=== PATIENT | female | born 1935 | race Caucasian/White ===

== ENCOUNTER → 2016-04-05 | Outpatient (REF) | payer MEDICARE ==
[2016-04-05 13:40] LABS: BASO # 0.1 K/mm3 (0.0-0.2); BASO % 0.9 % (0.0-1.0); EOS # 0.2 K/mm3 (0.0-0.50); EOS % 3.3 % (0.0-3.0); LARGE UNSTAINED CELL # 0.1 K/mm3 (0.0-0.4); LARGE UNSTAINED CELL % 1.9 % (0.0-4.0); LYMPH % 26.7 % (24.0-44.0); MEAN CORPUSCULAR HEMOGLOBIN 28.8 pg (27.0-33.0); MEAN CORPUSCULAR VOLUME 87.2 fl (80.0-96.0); MONO # 0.4 K/mm3 (0.0-0.8); MONO % 5.2 % (0.0-5.0); NEUTROPHILS # 4.5 K/mm3 (1.8-7.7); NEUTROPHILS % 62.1 % (36.0-66.0); PLATELET COUNT, AUTOMATED 215 k/mm3 (150-450); RED CELL DISTRIBUTION WIDTH 13.4 % (11.5-14.5); WHITE BLOOD COUNT 7.3 K/mm3 (4.0-10.0)
[2016-04-05 13:46] LABS: ANION GAP 9 MEQ/L (8-16); BLOOD UREA NITROGEN 20 MG/DL (7-18); CALCIUM LEVEL 9.6 MG/DL (8.8-10.2); CARBON DIOXIDE LEVEL 28 MEQ/L (21-32); CHLORIDE LEVEL 106 MEQ/L (98-107); CREATININE FOR GFR 0.88 MG/DL (0.55-1.02); GLOMERULAR FILTRATION RATE > 60.0 (>32); GLUCOSE, FASTING 102 MG/DL (83-110); POTASSIUM SERUM 4.4 MEQ/L (3.5-5.1); SODIUM LEVEL 143 MEQ/L (136-145)
== END ==
LOC: M SFHCPLAZ 11:29
PROVIDERS: ATTEND Nurse Practitioner Family
DX: J45.21 Mild intermittent asthma with (acute) exacerbation (principal)
CPT/HCPCS: 36415; 80048; 85025; G0463

== ENCOUNTER → 2016-04-06 | Outpatient (CLI) | payer MEDICARE ==
--- NOTE | 2016-04-06 11:51 | REP ---
TWO VIEW CHEST: Two views of the chest are performed. COMPARISON: 09/26/2013 There are mild bibasilar fibrotic changes. There is no acute infiltrate. The heart is normal in size. There is calcified tortuous aorta. The mediastinal silhouette is unchanged. There are degenerative changes of the spine. Metallic clips are again seen in the upper abdomen. IMPRESSION: Mild stable chronic findings without evidence of acute pulmonary disease. Signed by Padilla Powell MD 04/06/2016 02:34 P
== END | disposition home or self-care (01) ==
LOC: M SMT 09:21
PROVIDERS: ATTEND Nurse Practitioner Family
DX: J45.21 Mild intermittent asthma with (acute) exacerbation (principal); J98.4 Other disorders of lung

== ENCOUNTER → 2016-06-01 | Outpatient (REF) | payer MEDICARE ==
[2016-06-01 12:17] LABS: ALBUMIN 3.5 GM/DL (3.2-5.2); ALBUMIN/GLOBULIN RATIO 1.21 (1.00-1.93); ALKALINE PHOSPHATASE 80 U/L (45-117); ALT/SGPT 28 U/L (12-78); ANION GAP 3 MEQ/L (8-16); AST/SGOT 22 U/L (15-37); BILIRUBIN,TOTAL 0.4 MG/DL (0.2-1.0); BLOOD UREA NITROGEN 17 MG/DL (7-18); CALCIUM LEVEL 9.5 MG/DL (8.8-10.2); CARBON DIOXIDE LEVEL 31 MEQ/L (21-32); CHLORIDE LEVEL 109 MEQ/L (98-107); FREE T4 1.17 NG/DL (0.76-1.46); GLOMERULAR FILTRATION RATE > 60.0 (>32); GLUCOSE, FASTING 83 MG/DL (83-110); MAGNESIUM LEVEL 2.4 MG/DL (1.8-2.4); POTASSIUM SERUM 4.6 MEQ/L (3.5-5.1); SODIUM LEVEL 143 MEQ/L (136-145); TOTAL PROTEIN 6.4 GM/DL (6.4-8.2)
== END ==
LOC: M SFHCPLAZ 08:20
PROVIDERS: ATTEND Nurse Practitioner Family
DX: I10 Essential (primary) hypertension (principal); E03.9 Hypothyroidism, unspecified

== ENCOUNTER → 2017-01-17 | Outpatient (REF) | payer MEDICARE ==
[2017-01-17 12:18] LABS: ALBUMIN 3.6 GM/DL (3.2-5.2); ALBUMIN/GLOBULIN RATIO 1.38 (1.00-1.93); ALKALINE PHOSPHATASE 75 U/L (45-117); ALT/SGPT 30 U/L (12-78); ANION GAP 7 MEQ/L (8-16); AST/SGOT 21 U/L (7-37); BILIRUBIN,TOTAL 0.4 MG/DL (0.2-1.0); BLOOD UREA NITROGEN 18 MG/DL (7-18); CALCIUM LEVEL 9.3 MG/DL (8.8-10.2); CARBON DIOXIDE LEVEL 27 MEQ/L (21-32); CHLORIDE LEVEL 107 MEQ/L (98-107); CHOLESTEROL LEVEL 215 MG/DL (<200); FREE T4 0.97 NG/DL (0.76-1.46); GLOMERULAR FILTRATION RATE > 60.0 (>32); GLUCOSE, FASTING 90 MG/DL (83-110); POTASSIUM SERUM 4.4 MEQ/L (3.5-5.1); SODIUM LEVEL 141 MEQ/L (136-145); TOTAL PROTEIN 6.2 GM/DL (6.4-8.2); TRIGLYCERIDES LEVEL 246 MG/DL (<150)
== END ==
LOC: M SFHCPLAZ 08:34
PROVIDERS: ATTEND Nurse Practitioner Family
DX: I10 Essential (primary) hypertension (principal); E03.9 Hypothyroidism, unspecified; E78.2 Mixed hyperlipidemia

== ENCOUNTER → 2017-02-07 | Outpatient (CLI) | payer MEDICARE ==
--- NOTE | 2017-02-07 09:03 | REPMRS ---
Patient History The patient states she had a clinical breast exam in 05/2016. 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 No known family history of cancer. Benign excisional biopsy of the left breast, 1985. Digital Woman Screen Mammo: February 07, 2017 - Exam #: [id number] Bilateral CC and MLO view(s) were taken. Technologist: Liz Borrero, Technologist Prior study comparison: February 07, 2016, bilateral digital mammo screening bilat, performed at [facility]. February 04, 2015, bilateral digital mammo screening bilat, performed at [facility]. February 02, 2014, bilateral digital mammo screening bilat, performed at [facility]. January 28, 2013, digital woman screen mammo performed at [facility]. FINDINGS: There are scattered fibroglandular densities. There has been no change in the appearance of the mammogram from the prior studies. There is a mild amount of residual fibroglandular tissue which is fairly symmetric. There is no interval development of dominant mass, architectural distortion, or clustered microcalcification suggestive of malignancy. There are bilateral benign arterial calcifications noted. Large coarse benign appearing calcifications are present. There are scattered, small, benign calcifications of doubtful clinical significance. No significant changes when compared with prior studies. ASSESSMENT: BI-RADS/ACR category 2 mammogram. Benign finding(s). Recommendation Routine screening mammogram in 1 year (for women over age 40). This mammogram was interpreted with the aid of an FDA-approved computer-aided dectection system. A. Negative x-ray reports should not delay biopsy if a dominant or clinically suspicious mass is present. B. Four to eight percent of cancers are not identified by mammography. C. Adenosis and dense breast may obscure an underlying neoplasm. Electronically Signed By: Julian Jung MD 02/07/17 0902
--- NOTE | 2017-02-09 09:12 | DEXA ---
AP SPINE L1 - L4 1.397 1.6 3.5 LT FEMUR TOTAL 0.849 -1.3 0.8 RT FEMUR TOTAL 0.822 -1.5 0.6 TOTAL BODY TOTAL OTHER COMMENTS: Normal bone densitometry of the spine. There is low bone density of the left hip. There is low bone density of the right hip. There is degenerative change in the spine which may artificially elevate the BMD. The decreased density of the spine does not represent a significant change since 02/04/2015. The decreased density of the left hip does represent a significant change since 02/04/2015. The decreased density of the right hip does represent a significant change since 02/04/2015. The density of the spine has decreased 0.9% since the initial exam on 2001. The spine density has decreased 0.7% since the most recent exam on 02/04/2015. The density of the left hip has decreased 18.6% since the initial exam on 2001. The density of the left hip has decreased 7.0% since the most recent exam on 05/2014. The density of the right hip has decreased 23.7% since the initial exam on 05/27. The density of the right hip has decreased 7.2% since the most recent exam on . FOLLOW-UP: Recommendation for the next bone density exam: 2 years. HERNÁN
== END ==
LOC: M WHC 07:49
PROVIDERS: ATTEND Nurse Practitioner Family
DX: Z12.31 Encounter for screening mammogram for malignant neoplasm of breast (principal); M85.80 Other specified disorders of bone density and structure, unspecified site; Z78.0 Asymptomatic menopausal state
CPT/HCPCS: 77080; G0202

== ENCOUNTER → 2017-04-26 | Outpatient (REF) | payer MEDICARE ==
[2017-04-26 12:36] LABS: FREE T4 1.54 NG/DL (0.76-1.46); THYROID STIMULATING HORMONE 0.024 uIU/ML (0.358-3.740)
== END ==
LOC: M SFHCPLAZ 08:19
DX: E03.9 Hypothyroidism, unspecified (principal)
CPT/HCPCS: 84443

== ENCOUNTER → 2017-10-25 | Outpatient (REF) | payer MEDICARE ==
[2017-10-25 13:04] LABS: ALBUMIN 3.7 GM/DL (3.2-5.2); ALBUMIN/GLOBULIN RATIO 1.16 (1.00-1.93); ALKALINE PHOSPHATASE 79 U/L (45-117); ALT/SGPT 25 U/L (12-78); ANION GAP 7 MEQ/L (8-16); AST/SGOT 20 U/L (7-37); BILIRUBIN,TOTAL 0.4 MG/DL (0.2-1.0); BLOOD UREA NITROGEN 17 MG/DL (7-18); CALCIUM LEVEL 9.5 MG/DL (8.8-10.2); CARBON DIOXIDE LEVEL 28 MEQ/L (21-32); CHLORIDE LEVEL 107 MEQ/L (98-107); CREATININE FOR GFR 0.78 MG/DL (0.55-1.30); FREE T4 1.21 NG/DL (0.76-1.46); GLOMERULAR FILTRATION RATE > 60.0 (>32); GLUCOSE, FASTING 93 MG/DL (70-100); POTASSIUM SERUM 4.5 MEQ/L (3.5-5.1); SODIUM LEVEL 142 MEQ/L (136-145); THYROID STIMULATING HORMONE 0.234 uIU/ML (0.358-3.740); TOTAL PROTEIN 6.9 GM/DL (6.4-8.2)
== END ==
LOC: M SFHCPLAZ 08:09
DX: I10 Essential (primary) hypertension (principal); E03.9 Hypothyroidism, unspecified
CPT/HCPCS: 84443

== ENCOUNTER → 2017-11-06 | Outpatient (CLI) | payer MEDICARE | LOC: M RAD 08:16 | DX: I65.23 Occlusion and stenosis of bilateral carotid arteries (principal) | CPT/HCPCS: 93880 ==

== ENCOUNTER → 2017-12-25 | Outpatient (REF) | payer MEDICARE ==
[2017-12-25 11:19] LABS: BLOOD UREA NITROGEN 14 MG/DL (7-18)
[2017-12-25 11:19] LABS: GLOMERULAR FILTRATION RATE > 60.0 (>32)
== END ==
LOC: M LABDRAWP 11:00
DX: M25.561 Pain in right knee (principal)

== ENCOUNTER → 2017-12-25 | Outpatient (REF) | payer MEDICARE ==
[2017-12-25 11:24] LABS: ALBUMIN 3.5 GM/DL (3.2-5.2); ALBUMIN/GLOBULIN RATIO 1.13 (1.00-1.93); ALKALINE PHOSPHATASE 80 U/L (45-117); ALT/SGPT 21 U/L (12-78); ANION GAP 7 MEQ/L (8-16); AST/SGOT 19 U/L (7-37); BILIRUBIN,TOTAL 0.4 MG/DL (0.2-1.0); BLOOD UREA NITROGEN 14 MG/DL (7-18); CALCIUM LEVEL 9.1 MG/DL (8.8-10.2); CARBON DIOXIDE LEVEL 28 MEQ/L (21-32); CHLORIDE LEVEL 108 MEQ/L (98-107); CHOLESTEROL LEVEL 215 MG/DL (<200); CHOLESTEROL RISK RATIO 4.673 (<5); CREATININE FOR GFR 0.72 MG/DL (0.55-1.30); FREE T4 1.23 NG/DL (0.76-1.46); GLOMERULAR FILTRATION RATE > 60.0 (>32); GLUCOSE, FASTING 91 MG/DL (70-100); HDL CHOLESTEROL 46 MG/DL (>40); LDL CHOLESTEROL 105 MG/DL (<100); NON-HDL-C 169 MG/DL; POTASSIUM SERUM 4.6 MEQ/L (3.5-5.1); SODIUM LEVEL 143 MEQ/L (136-145); THYROID STIMULATING HORMONE 0.271 uIU/ML (0.358-3.740); TOTAL PROTEIN 6.6 GM/DL (6.4-8.2); TRIGLYCERIDES LEVEL 321 MG/DL (<150)
== END ==
LOC: M SFHCPLAZ 08:38
DX: E78.2 Mixed hyperlipidemia (principal); E03.9 Hypothyroidism, unspecified
CPT/HCPCS: 84443

== ENCOUNTER → 2017-12-26 | Outpatient (REF) | payer MEDICARE | LOC: M LAB REF 18:01 | DX: C44.622 Squamous cell carcinoma of skin of right upper limb, including shoulder (principal) | CPT/HCPCS: 88305 ==

== ENCOUNTER → 2018-02-08 | Outpatient (CLI) | payer MEDICARE | LOC: M WHC 07:52 | DX: Z12.31 Encounter for screening mammogram for malignant neoplasm of breast (principal); Z86.018 Personal history of other benign neoplasm | CPT/HCPCS: 77067 ==

== ENCOUNTER → 2018-03-22 | Outpatient (REF) | payer MEDICARE ==
[2018-03-22 10:37] LABS: BLOOD UREA NITROGEN 13 MG/DL (7-18); CARBON DIOXIDE LEVEL 29 MEQ/L (21-32); CHLORIDE LEVEL 108 MEQ/L (98-107); CREATININE FOR GFR 0.71 MG/DL (0.55-1.30); GLOMERULAR FILTRATION RATE > 60.0 (>32); GLUCOSE, FASTING 91 MG/DL (70-100); POTASSIUM SERUM 4.3 MEQ/L (3.5-5.1); SODIUM LEVEL 143 MEQ/L (136-145)
== END ==
LOC: M SFHCPLAZ 08:36
PROVIDERS: ATTEND Nurse Practitioner Family
DX: E03.9 Hypothyroidism, unspecified (principal); I10 Essential (primary) hypertension

== ENCOUNTER → 2018-08-26 | Outpatient (REF) | payer MEDICARE ==
[2018-08-26 13:24] LABS: ALBUMIN 3.7 GM/DL (3.2-5.2); ALT/SGPT 26 U/L (12-78); BASO # 0.1 10^3/uL (0.0-0.2); BASO % 0.9 % (0.0-1.0); BILIRUBIN,TOTAL 0.4 MG/DL (0.2-1.0); BLOOD UREA NITROGEN 13 MG/DL (7-18); CALCIUM LEVEL 9.9 MG/DL (8.8-10.2); CARBON DIOXIDE LEVEL 29 MEQ/L (21-32); CHLORIDE LEVEL 105 MEQ/L (98-107); CREATININE FOR GFR 0.85 MG/DL (0.55-1.30); EOS # 0.2 10^3/uL (0.0-0.50); EOS % 3.6 % (0.0-3.0); GLOMERULAR FILTRATION RATE > 60.0 (>32); GLUCOSE, FASTING 92 MG/DL (70-100); HEMATOCRIT 41.5 % (36.0-47.0); HEMOGLOBIN 13.6 g/dl (12.0-15.5); LYMPH % 29.3 % (24.0-44.0); MAGNESIUM LEVEL 2.4 MG/DL (1.8-2.4); MEAN CORPUSCULAR HEMOGLOBIN 29.4 pg (27.0-33.0); MEAN CORPUSCULAR HGB CONC 32.8 g/dl (32.0-36.5); MEAN CORPUSCULAR VOLUME 89.6 fl (80.0-96.0); MONO # 0.5 10^3/uL (0.0-0.8); MONO % 6.7 % (0.0-5.0); NEUTROPHILS # 3.9 10^3/uL (1.8-7.7); NEUTROPHILS % 58.8 % (36.0-66.0); PLATELET COUNT, AUTOMATED 228 10^3/uL (150-450); POTASSIUM SERUM 4.5 MEQ/L (3.5-5.1); RED BLOOD COUNT 4.63 10^6/uL (4.00-5.40); SODIUM LEVEL 141 MEQ/L (136-145); TOTAL PROTEIN 7.3 GM/DL (6.4-8.2); WHITE BLOOD COUNT 6.7 10^3/uL (4.0-10.0)
== END ==
LOC: M SFHCPLAZ 09:19
PROVIDERS: ATTEND Family Medicine
DX: R19.7 Diarrhea, unspecified (principal)

== ENCOUNTER → 2018-12-17 | Outpatient (REF) | payer MEDICARE ==
[2018-12-17 10:51] LABS: ALBUMIN 3.5 GM/DL (3.2-5.2); ALT/SGPT 30 U/L (12-78); BILIRUBIN,TOTAL 0.5 MG/DL (0.2-1.0); BLOOD UREA NITROGEN 13 MG/DL (7-18); CALCIUM LEVEL 9.1 MG/DL (8.8-10.2); CARBON DIOXIDE LEVEL 29 MEQ/L (21-32); CHLORIDE LEVEL 107 MEQ/L (98-107); CHOLESTEROL LEVEL 208 MG/DL (<200); CHOLESTEROL RISK RATIO 4.521 (<5); CREATININE FOR GFR 0.84 MG/DL (0.55-1.30); FREE T4 0.92 NG/DL (0.76-1.46); GLOMERULAR FILTRATION RATE > 60.0 (>32); GLUCOSE, FASTING 90 MG/DL (70-100); HDL CHOLESTEROL 46 MG/DL (>40); LDL CHOLESTEROL 94 MG/DL (<100); NON-HDL-C 162 MG/DL; POTASSIUM SERUM 4.5 MEQ/L (3.5-5.1); SODIUM LEVEL 141 MEQ/L (136-145); TOTAL PROTEIN 6.4 GM/DL (6.4-8.2); TRIGLYCERIDES LEVEL 339 MG/DL (<150)
== END ==
LOC: M SFHCPLAZ 07:50
PROVIDERS: ATTEND Nurse Practitioner Family
DX: I10 Essential (primary) hypertension (principal); E03.9 Hypothyroidism, unspecified; E78.2 Mixed hyperlipidemia

== ENCOUNTER → 2019-03-07 | Outpatient (CLI) | payer MEDICARE ==
--- NOTE | 2019-03-07 11:39 | REPMRS ---
Patient History The patient states she had a clinical breast exam in 07/2018. 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 No known family history of cancer. Benign excisional biopsy of the left breast, 1985. No Hormone Replacement Therapy Digital Woman Screen Mammo: March 07, 2019 - Exam #: [id number] Bilateral CC and MLO view(s) were taken. Technologist: Liz Borrero, Technologist Prior study comparison: February 08, 2018, bilateral digital woman screen mammo performed at [facility]. February 07, 2017, digital woman screen mammo performed at [facility]. February 07, 2016, bilateral digital mammo screening bilat, performed at [facility]. FINDINGS: There are scattered fibroglandular densities. There has been no change in the appearance of the mammogram from the prior studies. There is a mild amount of scattered fibroglandular density which is fairly symmetric. There is no interval development of dominant mass, architectural distortion, or grouped microcalcification suggestive of malignancy. 3-D tomosynthesis shows no additional findings. Assessment: BI-RADS/ACR category 1 mammogram. Negative Mammogram. Recommendation Routine screening mammogram of both breasts in 1 year (for women over age 40). This patient's Lifetime Breast Cancer Risk is estimated at 0.5 %. This mammogram was interpreted with the aid of an FDA-approved computer-aided dectection system. Electronically Signed By: Manny Rodriguez MD 03/07/19 [id number]
== END ==
LOC: M WHC 10:07
PROVIDERS: ATTEND Nurse Practitioner Family
DX: Z12.31 Encounter for screening mammogram for malignant neoplasm of breast (principal)

== ENCOUNTER → 2019-03-12 | Outpatient (CLI) | payer MEDICARE ==
[2019-03-12 11:30] LABS: ALBUMIN 3.5 GM/DL (3.2-5.2); ALT/SGPT 20 U/L (12-78); BILIRUBIN,TOTAL 0.5 MG/DL (0.2-1.0); BLOOD UREA NITROGEN 13 MG/DL (7-18); CALCIUM LEVEL 9.3 MG/DL (8.8-10.2); CARBON DIOXIDE LEVEL 28 MEQ/L (21-32); CHLORIDE LEVEL 105 MEQ/L (98-107); CHOLESTEROL LEVEL 203 MG/DL (<200); CHOLESTEROL RISK RATIO 4.511 (<5); CREATININE FOR GFR 0.85 MG/DL (0.55-1.30); FREE T4 1.19 NG/DL (0.76-1.46); GLOMERULAR FILTRATION RATE > 60.0 (>32); GLUCOSE, FASTING 88 MG/DL (70-100); HDL CHOLESTEROL 45 MG/DL (>40); LDL CHOLESTEROL 113 MG/DL (<100); NON-HDL-C 158 MG/DL; POTASSIUM SERUM 4.6 MEQ/L (3.5-5.1); SODIUM LEVEL 140 MEQ/L (136-145); TOTAL PROTEIN 6.6 GM/DL (6.4-8.2); TRIGLYCERIDES LEVEL 223 MG/DL (<150)
== END ==
LOC: M PLALAB 08:29
PROVIDERS: ATTEND Nurse Practitioner Family
DX: E03.9 Hypothyroidism, unspecified (principal)

== ENCOUNTER → 2019-04-23 | Outpatient (REF) | payer MEDICARE ==
[2019-04-23 11:14] LABS: BASO # 0.1 10^3/uL (0.0-0.2); BASO % 0.7 % (0.0-1.0); EOS # 0.2 10^3/uL (0.0-0.5); EOS % 2.3 % (0.0-3.0); HEMATOCRIT 39.7 % (36.0-47.0); HEMOGLOBIN 13.3 g/dl (12.0-15.5); LYMPH # 1.7 10^3/uL (1.5-5.0); LYMPH % 24.6 % (24.0-44.0); MEAN CORPUSCULAR HEMOGLOBIN 29.7 pg (27.0-33.0); MEAN CORPUSCULAR HGB CONC 33.5 g/dl (32.0-36.5); MEAN CORPUSCULAR VOLUME 88.6 fl (80.0-96.0); MONO # 0.5 10^3/uL (0.0-0.8); MONO % 7.1 % (0.0-5.0); NEUTROPHILS # 4.6 10^3/uL (1.5-8.5); NEUTROPHILS % 64.9 % (36.0-66.0); PLATELET COUNT, AUTOMATED 178 10^3/uL (150-450); RED BLOOD COUNT 4.48 10^6/uL (4.00-5.40)
[2019-04-23 11:38] LABS: ALBUMIN 3.9 GM/DL (3.2-5.2); ALT/SGPT 27 U/L (12-78); BILIRUBIN,TOTAL 0.6 MG/DL (0.2-1.0); BLOOD UREA NITROGEN 12 MG/DL (7-18); CALCIUM LEVEL 9.7 MG/DL (8.8-10.2); CARBON DIOXIDE LEVEL 29 MEQ/L (21-32); CHLORIDE LEVEL 106 MEQ/L (98-107); CREATININE FOR GFR 0.74 MG/DL (0.55-1.30); GLOMERULAR FILTRATION RATE > 60.0 (>32); GLUCOSE, FASTING 105 MG/DL (70-100); MAGNESIUM LEVEL 2.1 MG/DL (1.8-2.4); POTASSIUM SERUM 4.5 MEQ/L (3.5-5.1); SODIUM LEVEL 139 MEQ/L (136-145); TOTAL PROTEIN 6.8 GM/DL (6.4-8.2)
[2019-04-23 11:46] LABS: FOLATE > 24.0 NG/ML; VITAMIN B12 LEVEL 858 PG/ML
== END ==
LOC: M SFHCPLAZ 10:15
PROVIDERS: ATTEND Nurse Practitioner Family
DX: R53.83 Other fatigue (principal); R29.898 Other symptoms and signs involving the musculoskeletal system

== ENCOUNTER → 2019-07-17 | Outpatient (REF) | payer MEDICARE ==
[2019-07-17 11:09] LABS: BASO # 0.1 10^3/uL (0.0-0.2); BASO % 0.6 % (0.0-1.0); EOS # 0.2 10^3/uL (0.0-0.5); EOS % 2.4 % (0.0-3.0); HEMATOCRIT 41.6 % (36.0-47.0); LYMPH % 25.1 % (24.0-44.0); MEAN CORPUSCULAR HEMOGLOBIN 30.1 pg (27.0-33.0); MEAN CORPUSCULAR HGB CONC 33.7 g/dl (32.0-36.5); MEAN CORPUSCULAR VOLUME 89.5 fl (80.0-96.0); MONO # 0.6 10^3/uL (0.0-0.8); MONO % 7.7 % (0.0-5.0); NEUTROPHILS # 5.1 10^3/uL (1.5-8.5); NEUTROPHILS % 63.8 % (36.0-66.0); PLATELET COUNT, AUTOMATED 192 10^3/uL (150-450); RED BLOOD COUNT 4.65 10^6/uL (4.00-5.40); WHITE BLOOD COUNT 8.1 10^3/uL (4.0-10.0)
[2019-07-17 11:29] LABS: BLOOD UREA NITROGEN 11 MG/DL (7-18); CARBON DIOXIDE LEVEL 28 MEQ/L (21-32); CHLORIDE LEVEL 107 MEQ/L (98-107); CREATININE FOR GFR 0.73 MG/DL (0.55-1.30); GLOMERULAR FILTRATION RATE > 60.0 (>32); GLUCOSE, FASTING 131 MG/DL (70-100); POTASSIUM SERUM 4.2 MEQ/L (3.5-5.1); SODIUM LEVEL 141 MEQ/L (136-145)
== END ==
LOC: M SFHCPLAZ 10:11
PROVIDERS: ATTEND Nurse Practitioner Family
DX: J06.9 Acute upper respiratory infection, unspecified (principal); R05 Cough; Z11.59 Encounter for screening for other viral diseases
CPT/HCPCS: 36415; 80048; 85025; U0003

== ENCOUNTER → 2019-07-17 | Outpatient (CLI) | payer MEDICARE ==
--- NOTE | 2019-07-17 12:03 | REPPI ---
CHEST X-RAY: Two views. HISTORY: Cough. COMPARISON CHEST X-RAY: April 23, 2019. FINDINGS: The lungs are symmetrically aerated. No focal infiltrate is seen. Mildly prominent interstitial markings are seen peripherally unchanged from prior study consistent with COPD. The aorta is calcific and somewhat tortuous. The heart is not felt to be enlarged. Pleural angles are sharp. There are clips in the right upper quadrant of the abdomen. IMPRESSION: Prominent interstitial markings consistent with COPD unchanged. No focal infiltrate. Electronically Signed by Josh Rodriguez MD 07/17/2019 01:15 P
== END ==
LOC: M PLAIMG 10:12
PROVIDERS: ATTEND Nurse Practitioner Family
DX: R05 Cough (principal)

== ENCOUNTER → 2019-10-30 | Outpatient (CLI) | payer MEDICARE ==
[2019-10-30 13:48] LABS: ALBUMIN 3.7 GM/DL (3.2-5.2); ALT/SGPT 21 U/L (12-78); BILIRUBIN,TOTAL 0.6 MG/DL (0.2-1.0); BLOOD UREA NITROGEN 9 MG/DL (7-18); CALCIUM LEVEL 9.4 MG/DL (8.8-10.2); CARBON DIOXIDE LEVEL 29 MEQ/L (21-32); CHLORIDE LEVEL 107 MEQ/L (98-107); CHOLESTEROL LEVEL 203 MG/DL (<200); CHOLESTEROL RISK RATIO 4.229 (<5); FREE T4 1.38 NG/DL (0.76-1.46); GLOMERULAR FILTRATION RATE > 60.0 (>32); GLUCOSE, FASTING 99 MG/DL (70-100); HDL CHOLESTEROL 48 MG/DL (>40); LDL CHOLESTEROL 108 MG/DL (<100); NON-HDL-C 155 MG/DL; SODIUM LEVEL 142 MEQ/L (136-145); THYROID STIMULATING HORMONE 0.636 uIU/ML (0.358-3.740); TOTAL 25(OH) VITAMIN D 60.5 NG/ML (30.0-100.0); TOTAL PROTEIN 6.7 GM/DL (6.4-8.2); TRIGLYCERIDES LEVEL 237 MG/DL (<150)
== END ==
LOC: M PLALAB 08:34
PROVIDERS: ATTEND Nurse Practitioner Family
DX: I10 Essential (primary) hypertension (principal); E78.2 Mixed hyperlipidemia; E03.9 Hypothyroidism, unspecified; G89.29 Other chronic pain

== ENCOUNTER → 2020-03-17 | Outpatient (CLI) | payer MEDICARE ==
--- NOTE | 2020-03-17 09:25 | REPMRS ---
Patient History The patient states she has not had a clinical breast exam in over a year. No known family history of cancer. Benign excisional biopsy of the left breast, 1985. No Hormone Replacement Therapy 3D TOMOSYNTHESIS WAS PERFORMED. [facility] lifetime risk for breast cancer is 0.3%. Volpara breast density b. Digital Woman Screen Mammo: March 17, 2020 - Exam #: [id number] Bilateral CC and MLO view(s) were taken. Technologist: Sherry Bermudez, Technologist Prior study comparison: March 07, 2019, bilateral digital woman screen mammo performed at [facility]. February 08, 2018, bilateral digital woman screen mammo performed at [facility]. FINDINGS: There are scattered fibroglandular densities. There has been no change in the appearance of the mammogram from the prior studies. There is a mild amount of residual fibroglandular tissue which is fairly symmetric. There is no interval development of dominant mass, architectural distortion, or clustered microcalcification suggestive of malignancy. Assessment: BI-RADS/ACR category 1 mammogram. Negative Mammogram. Recommendation Routine screening mammogram in 1 year (for women over age 40). This mammogram was interpreted with the aid of an FDA-approved computer-aided dectection system. Electronically Signed By: Padilla Powell MD 03/17/20 0925
== END ==
LOC: M WHC 08:55
PROVIDERS: ATTEND Nurse Practitioner Family
DX: Z12.31 Encounter for screening mammogram for malignant neoplasm of breast (principal)

== ENCOUNTER → 2020-06-30 | Outpatient (REF) | payer MEDICARE ==
[2020-06-30 11:31] LABS: ALBUMIN 3.6 GM/DL (3.2-5.2); ALT/SGPT 18 U/L (12-78); BILIRUBIN,TOTAL 0.4 MG/DL (0.2-1.0); BLOOD UREA NITROGEN 16 MG/DL (7-18); CALCIUM LEVEL 9.6 MG/DL (8.8-10.2); CARBON DIOXIDE LEVEL 28 MEQ/L (21-32); CHLORIDE LEVEL 107 MEQ/L (98-107); CHOLESTEROL LEVEL 206 MG/DL (<200); CHOLESTEROL RISK RATIO 3.961 (<5); CREATININE FOR GFR 0.76 MG/DL (0.55-1.30); GLOMERULAR FILTRATION RATE > 60.0 (>32); GLUCOSE, FASTING 94 MG/DL (70-100); HDL CHOLESTEROL 52 MG/DL (>40); LDL CHOLESTEROL 111 MG/DL (<100); NON-HDL-C 154 MG/DL; POTASSIUM SERUM 4.3 MEQ/L (3.5-5.1); SODIUM LEVEL 141 MEQ/L (136-145); TOTAL 25(OH) VITAMIN D 53.2 NG/ML (30.0-100.0); TOTAL PROTEIN 6.7 GM/DL (6.4-8.2); TRIGLYCERIDES LEVEL 215 MG/DL (<150)
== END ==
LOC: M PLALAB 08:13
PROVIDERS: ATTEND Nurse Practitioner Family
DX: I10 Essential (primary) hypertension (principal); E03.9 Hypothyroidism, unspecified; E78.2 Mixed hyperlipidemia; M54.5 Low back pain

== ENCOUNTER 2020-09-14 15:33 | Inpatient (IN) | payer MEDICARE ==
[~2020-09-14] VITALS: Ht 160 cm; Wt 65.1 kg
[2020-09-14] MEDS ORDERED: PANT40TA29 PO (16:33)
[2020-09-14] MEDS ORDERED: LEVO125T4 PO (16:33)
[2020-09-14] MEDS ORDERED: QVAR80AE8 INH (16:33)
[2020-09-14] MEDS ORDERED: ALLE180T33 PO (16:33)
[2020-09-14] MEDS ORDERED: IRBE300T7 PO (16:33)
[2020-09-14] MEDS ORDERED: EQ S0.65 NARES (16:33)
[2020-09-14] MEDS ORDERED: NS 1,000 ML IV SCH (16:35)
--- NOTE | 2020-09-14 16:50 | REP ---
INDICATION: trauma. COMPARISON: Comparison chest x-ray April 06, 2016.. TECHNIQUE: Sitting AP radiograph. Single-view. FINDINGS: The lungs are symmetrically aerated and free of focal infiltrate. Interstitial markings are slightly prominent consistent with some mild interstitial fibrosis. The pleural angles are sharp. Heart is not enlarged. The aorta is calcific and slightly tortuous. Pulmonary vasculature is not increased. No acute bony abnormality is seen. IMPRESSION: No active disease. <Electronically signed by Manny Rodriguez > 09/14/20 [id number]
[2020-09-14] MEDS ORDERED: PROAAER10 INH (17:14)
[2020-09-14] MEDS ORDERED: POTA99TA14 PO (17:14)
--- NOTE | 2020-09-14 17:26 | ECGEPIP ---
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
--- NOTE | 2020-09-14 17:36 | HPEPDOC ---
[facility] Medical History & Physical Date of Admission Sep 14, 2020 Date of Service: Sep 14, 2020 Primary Care Physician: HESHAM COLEMAN NP Attending Physician: OLINDA PEÑA DO History and Physical CHIEF COMPLAINT: Right hip pain HISTORY OF PRESENT ILLNESS: Patient is an 85-year-old female who presents to the emergency department after having an x-ray performed outpatient by her primary care provider with right hip pain. Patient states 8 days ago she had a mechanical fall. Patient was turning while walking and caught the sole of her shoe on the ground causing her to fall. Patient states that she has been having some hip pain since then. She saw her primary care provider but did not want to get x-rays done as she was still able to walk on it and it was not bothering her that much. Today she says that she called her primary care provider because she was not feeling right. Hip x-ray was ordered which did show a right impacted femoral neck fracture. Dr. Schneider orthopedic surgery was called and will be consulted. Patient states that she has been feeling otherwise well. Patient denies any chest pain or difficulty breathing while walking on flat ground for more than 4 city blocks (5 to 10 minutes of walking) or up a flight of stairs. 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 Patient is otherwise healthy and active. Patient does have a history of asthma and is on controlling medication. Patient will have to use her albuterol maybe once a month with no nighttime awakenings. Patient is otherwise feeling well PAST MEDICAL HISTORY: 1. Hypothyroidism. 2. Hypertension. 3. Allergic rhinitis. 4. Vitamin D deficiency 5. Asthma 6. Hyperlipidemia 7. Psoriasis 8. Osteopenia found on DEXA scan 2014 9. Aortic valve sclerosis with marginal stenosis, last echocardiogram performed 1 month ago in the patient's cardiology office according the patient with r ecommendation to repeat in 1 year 10. GERD PAST SURGICAL HISTORY: 1. Bilateral cataract surgery. 2. Hysterectomy with bilateral salpingo-oophorectomy. 3. Breast biopsy. 4. Cholecystectomy 5. Eyelid surgery x2 6. Colonoscopy in 2006 7. Multiple excisional biopsies of skin cancer SOCIAL HISTORY: Patient currently lives with her and daughter. 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 Patient smokes cigarettes in the distant past and says she has not smoked in greater than 40 years. Patient rarely drinks alcohol and denies any illicit drug use FAMILY HISTORY: Patient's father at the age of 55 of black lung and ASCVD. Mother at 78 due to CHF. Patient has a history of multiple CVA in her siblings. ALLERGIES: Please see below. REVIEW OF SYSTEMS: General: Patient denies fevers HEENT: Patient denies headaches Cardiovascular: Patient denies chest pain Respiratory: Patient denies shortness of breath, cough GI: Patient denies abdominal pain, nausea, vomiting, diarrhea : Patient denies increased frequency or pain with urination Extremities: Patient reports pain in her right hip. Patient reports her feet will occasionally swell up but they are not swollen at this time Neurological: Patient denies numbness or tingling in legs Skin: Patient denies any new rashes or lesions. Hematologic: Patient denies any easy bruising. Lymphatic: Patient denies any lumps lumps or bumps in neck, axilla, or groin HOME MEDICATIONS: Please see below. PHYSICAL EXAMINATION: VITAL SIGNS: Temperature 99.3, pulse 88, respiratory rate 16, blood pressure 180/88, pulse oximetry 97% on room air. General: Alert and oriented female patient who was laying in the bed in the emergency room I walked in. Patient did not appear to be in any acute distress. HEENT: Normocephalic, atraumatic, moist mucous membranes. Neck: No lymphadenopathy or thyromegaly Cardiac: Regular rate and rhythm, no murmurs, normal S1, normal S2 Pulm: Clear to auscultation bilaterally. No wheezes, rhonchi, rales Abd: Nondistended, nontender to palpation, normal bowel sounds Ext: No edema bilateral lower extremities Neuro: Patient is able to move her upper and lower extremities without any difficulty. Skin: Skin of the head, neck, upper and lower extremities, abdomen and lower back was examined not show any evidence of rash or suspicious lesions. LABORATORY DATA: See below. IMAGING: Hip and pelvis injury performed on 09/14/2020 was reported to show right hip fracture Chest x-ray performed on 09/14/2020 was reported to show no acute disease. MICROBIOLOGY: Please see below. ASSESSMENT: Patient is a an 85-year-old female who presented to the emergency department after falling 8 days ago who was found to have a right impacted femoral neck fracture on x-ray performed earlier in the day.. . PLAN: 1. Right femoral neck fracture. Dr. Schneider is on consult and will take the patient either to the OR tonight or tomorrow depending on the OR schedule. Patient will currently be held n.p.o. if the patient is going to go to the operating room today. Patient will work with physical therapy after the procedure and will be discharged based on Dr. Tobar's recommendations. 2. Preoperative evaluation. Patient presents for preoperative evaluation for right hip fracture repair on 09/14/2020 or 09/15/2020. Review of their medical history, medications were performed. At this time patient does not require any further medical evaluation prior to surgery. Patient does not require any further laboratory evaluation prior to surgery. Surgical risk was reviewed with patient. Patient is at 3.9% risk for surgery according to the RCRI risk calculator. Surgical risk was explained to patient, they understand risks of surgery and wish to proceed with surgery. Patient did take her irbesartan this morning the patient continues to be monitored closely for intraoperative hypotension due to being on an ERIKA inhibitor. If the patient is surgery tomorrow, ERIKA inhibitor should be held during the day. Patient also has a h istory of mild persistent asthma on controller medication and rarely has to use her rescue inhaler. Patient will need to be closely monitored due to her asthma. Patient is medically optimized for surgery. 3. Hypertension. Patient took her irbesartan today as above. We can use other blood pressure medication to lower her blood pressure if necessary. 4. Asthma. We will continue the patient's home medications. 5. Hypothyroidism. Continue home medications. 6. Hyperlipidemia. Continue home medications. 7. DVT prophylaxis: Teds and sequentials as the patient will be having surgery. 8. CODE STATUS: Full code. Patient stated that she would like measures that would save her life but would not like any measures done if they were deemed futile. Patient will be full code for surgery and CODE STATUS can be discussed in further detail after surgery. Disposition: Patient will be admitted to the medical surgical floor. Plan is to take the patient to the operating room for surgery either this evening or tomorrow depending on the operating room schedule and staff. Dr. Schneider has been consulted and has seen the patient. Vital Signs Vital Signs Date Time Temp Pulse Resp B/P (MAP) Pulse Ox O2 Delivery O2 Flow Rate FiO2 09/14/20 16:34 09/14/20 15:33 99.3 88 16 97 Room Air Laboratory Data Labs 24H Laboratory Tests 2 09/14/20 16:55: CBC/BMP Home Medications Scheduled Beclomethasone Dipropionate (Qvar Redihaler) 80 Mcg/Act Hfa.aeroba, 1 PUFF INH BID Fexofenadine HCl (Michelle Allergy) 180 Mg Tablet, 180 MG PO DAILY Irbesartan (Irbesartan) 300 Mg Tablet, 300 MG PO DAILY Levothyroxine Sodium (Levothyroxine Sodium) 125 Mcg Tablet, 125 MCG PO DAILY Pantoprazole Sodium (Pantoprazole Sodium) 40 Mg Tablet.dr, 40 MG PO DAILY Potassium Gluconate (Potassium) 99 Mg Tablet, 99 MG PO TID Sodium Chloride (Nasal Mccarley) 44 Ml Mccarley, 1 SPRAY NARES BID Scheduled PRN Albuterol Sulfate (Proair Hfa) 8.5 Gm Hfa.aer.ad, 2 PUFF INH Q6H PRN for SOB/WHEEZING Allergies Coded Allergies: codeine (Verified Adverse Reaction, Unknown, Nausea, 09/14/20) A-FIB/CHADSVASC A-FIB History Current/History of A-Fib/PAF?: No OLINDA PEÑA DO Sep 14, 2020 17:36
[2020-09-14 17:38] LABS: RSV AMPLIFICATION NEGATIVE (NEGATIVE)
[2020-09-14 17:51] LABS: BLOOD UREA NITROGEN 15 MG/DL (7-18); CALCIUM LEVEL 9.4 MG/DL (8.8-10.2); CARBON DIOXIDE LEVEL 27 MEQ/L (21-32); CHLORIDE LEVEL 105 MEQ/L (98-107); CK-MB VALUE MASS 1.9 NG/ML (<3.6); CPK CREATINE PHOSPHOKINASE 83 U/L (26-192); CREATININE FOR GFR 0.66 MG/DL (0.55-1.30); GLOMERULAR FILTRATION RATE > 60.0 (>32); GLUCOSE, FASTING 125 MG/DL (70-100); MB/CK RELATIVE INDEX 2.29 (< OR =4); POTASSIUM SERUM 4.2 MEQ/L (3.5-5.1); SODIUM LEVEL 137 MEQ/L (136-145); TROPONIN I < 0.02 NG/ML (< 0.10)
[2020-09-14 18:41] LABS: BASO # 0.1 10^3/uL (0.0-0.2); BASO % 0.8 % (0.0-1.0); EOS # 0.5 10^3/uL (0.0-0.5); HEMATOCRIT 38.3 % (36.0-47.0); HEMOGLOBIN 12.6 g/dl (12.0-15.5); LYMPH # 1.6 10^3/uL (1.5-5.0); LYMPH % 18.7 % (24.0-44.0); MEAN CORPUSCULAR HEMOGLOBIN 28.3 pg (27.0-33.0); MEAN CORPUSCULAR HGB CONC 32.9 g/dl (32.0-36.5); MEAN CORPUSCULAR VOLUME 85.9 fl (80.0-96.0); MONO # 0.6 10^3/uL (0.0-0.8); MONO % 6.9 % (2.0-8.0); NEUTROPHILS # 5.8 10^3/uL (1.5-8.5); NEUTROPHILS % 67.1 % (36.0-66.0); PLATELET COUNT, AUTOMATED 208 10^3/uL (150-450); RED BLOOD COUNT 4.46 10^6/uL (4.00-5.40); WHITE BLOOD COUNT 8.6 10^3/uL (4.0-10.0)
[2020-09-14] MEDS: NS 1,000 ML IV SCH (20:28)
[2020-09-15] VITALS (7 sets, daily range): BP systolic 146–167; BP diastolic 70–83; O2SAT 95
[2020-09-15 07:27] LABS: HEMATOCRIT 36.5 % (36.0-47.0); HEMOGLOBIN 12.1 g/dl (12.0-15.5); MEAN CORPUSCULAR HEMOGLOBIN 28.5 pg (27.0-33.0); MEAN CORPUSCULAR HGB CONC 33.2 g/dl (32.0-36.5); MEAN CORPUSCULAR VOLUME 86.1 fl (80.0-96.0); PLATELET COUNT, AUTOMATED 199 10^3/uL (150-450); RED BLOOD COUNT 4.24 10^6/uL (4.00-5.40); WHITE BLOOD COUNT 7.8 10^3/uL (4.0-10.0)
[2020-09-15 07:51] LABS: BLOOD UREA NITROGEN 9 MG/DL (7-18); CALCIUM LEVEL 8.9 MG/DL (8.8-10.2); CARBON DIOXIDE LEVEL 26 MEQ/L (21-32); CHLORIDE LEVEL 108 MEQ/L (98-107); CREATININE FOR GFR 0.56 MG/DL (0.55-1.30); GLOMERULAR FILTRATION RATE > 60.0 (>32); GLUCOSE, FASTING 98 MG/DL (70-100); POTASSIUM SERUM 3.9 MEQ/L (3.5-5.1); SODIUM LEVEL 139 MEQ/L (136-145)
[2020-09-15] MEDS: NS 1,000 ML IV SCH ×2 (07:57→12:29)
--- NOTE | 2020-09-15 08:59 | CR ---
CONSULTATION DATE: 09/14/2020 CHIEF COMPLAINT: Right hip fracture. HISTORY OF PRESENT ILLNESS: This is an 85-year-old female seen today at the request of the Emergency Department physician, Dr. Ignacio. The patient states eight days ago she had a ground-level mechanical fall. She fell directly on her right side, continues to have some groin pain. She was trying to put some weight on it but it was difficult for her. She saw her primary care physician, x-rays showed a valgus impacted femoral neck fracture. Otherwise, the patient denies chest pain, shortness of breath or loss of consciousness. PAST MEDICAL HISTORY: Per the Hospitalist note includes hypothyroidism, hypertension, allergic rhinitis, vitamin D deficiency, asthma, hyperlipidemia, psoriasis, osteopenia on DEXA scan in 2014, aortic valve sclerosis, marginal stenosis, GERD. MEDICATIONS: 1. Beclomethasone. 3. Irbesartan. 4. Levothyroxine. 5. Pantoprazole. 6. Potassium. 7. Sodium Chloride nasal spray. ALLERGIES: Codeine. PAST SURGICAL HISTORY: Cataract surgery, hysterectomy, bilateral salpingo-oophorectomy, breast biopsy, cholecystectomy, eyelid surgery x2, colonoscopy in 2006, multiple excisional biopsies of skin cancer. SOCIAL HISTORY: Patient lives with her and daughter. She is here with her right now, Bart. She uses a walker. Currently, no smoking, quit 40 years ago. She does not use drugs or alcohol. PHYSICAL EXAMINATION: This is a well-appearing 85-year-old female. She has a normal body mass index. She overall communicates well and appropriately. She is pleasant. Alert and oriented x3. Vital signs are stable. Examination of bilateral lower extremities: No obvious overlying evidence of muscle deformity or atrophy. Some mild pain at the proximal hip and groin. No pain of the knee, foot or ankle. She is able to wiggle her toes, dorsiflex, plantar flex the foot, the foot is warm and well-perfused. Strong dorsalis pedis pulse. Normal sensation to the superficial and deep peroneal nerves as well as saphenous, sural and tibial. IMAGING: Imaging was reviewed that shows a right valgus impacted femoral neck fracture, appears well-aligned on the lateral x-ray. LABORATORY DATA: Laboratory examination is pending, troponin is under 0.02. She is COVID negative. ASSESSMENT AND PLAN: This is an 85-year-old who has a valgus impacted femoral neck fracture. I explained her options. I explained the options of nonoperative management with protected weightbearing although this does carry an increased risk of displacement and need for subsequent hip arthroplasty surgery. I explained open reduction internal fixation with screws, DHS, Synthes femoral neck system or other means of internal fixation as well as hemiarthroplasty. I explained the pros and cons and risks and benefits of each of these options with her. The risk of open reduction internal fixation would be avascular necrosis, subsequent need for further surgery and conversion to a hemiarthroplasty or a total hip arthroplasty as well as hardware irritation, hardware breakage and other risks associated with surgery. Risks associated with hemiarthroplasty were also discussed. Typically, given the valgus impacted nature of the fracture this would be preferred treatment of open reduction internal fixation. I discussed the pros, cons, risks and benefits of this with her which include but are not limited to infection, pain, stiffness, weakness, damage to surrounding structures, limp, hardware irritation, hardware failure, subsequent need for conversion, avascular necrosis, osteoarthritis, delayed mal or nonunion, anesthetic complications, blood clots, and other risks. She wished to go ahead with surgery and I marked the right lower extremity and she signed the consent form for surgery of right hip open reduction internal fixation. In addition, we discussed the pros and cons, risks and benefits of possible need for blood transfusion. I discussed the risks including but not limited to infection, fevers, transfusion related reactions and other risks. She wished to go ahead with that. She signed the consent form. For now, the patient will be remaining NPO and I added the case onto the OR and left the surgical reps as well as the OR know about the case and we will perform the case either tonight or within the first 48 hours after admission. I explained this to the patient as well. For now, she is admitted under the Hospitalist service and will be made nothing by mouth. HERNÁN
[2020-09-15] MEDS ORDERED: MORPHINE 2 MG/ML 1ML VIAL (J2270) IV PRN ×3 (09:45→18:15)
[2020-09-15] MEDS ORDERED: traMADol 50 MG TAB PO ONE (12:30)
[2020-09-15] MEDS ORDERED: ceFAZolin 1GM VIAL (J0690 PER 500MG) As Ordered ONE (15:40)
[2020-09-15] MEDS ORDERED: LIDOCAINE 2% 100MG/5ML SDV (FOR ANES.) As Ordered ONE (15:42)
[2020-09-15] MEDS ORDERED: MIDAZOLAM INJ 2MG/2ML VIAL (J2250 PER 1MG) As Ordered ONE (15:42)
[2020-09-15] MEDS ORDERED: propofoL 200 MG/20 ML VIAL As Ordered ONE (15:42)
[2020-09-15] MEDS ORDERED: ROCURONIUM BROMIDE 50 MG/5 ML VIAL As Ordered ONE (15:42)
[2020-09-15] MEDS ORDERED: dexameTHASONE 4 MG/ML 1ML VIAL (J1100 PER 1MG) As Ordered ONE (15:42)
[2020-09-15] MEDS ORDERED: ACETAMINOPHEN 1000MG 100ML IV BTL (OFIRMEV) (J0131 PER 10MG) As Ordered ONE (15:42)
[2020-09-15] MEDS ORDERED: ONDANSETRON 4MG/2ML VIAL As Ordered ONE (15:42)
[2020-09-15] MEDS ORDERED: fentaNYL 100 MCG/2 ML INJECTION (J3010) As Ordered ONE (15:43)
[2020-09-15] MEDS ORDERED: PHENYLEPHRINE 10MG/ML 1ML VIAL (J2370 PER 1) As Ordered ONE (15:44)
[2020-09-15] MEDS ORDERED: KETAMINE HCL 200 MG/20 ML VIAL As Ordered ONE (15:56)
[2020-09-15] MEDS ORDERED: ceFAZolin 2 GM/D5W 50 ML IV BAG (J0690 PER 500MG) As Ordered ONE (16:02)
--- NOTE | 2020-09-15 17:42 | REP ---
INDICATION: RIGHT HIP FRACTURE. COMPARISON: PLAIN FILM EXAMINATION OBTAINED EARLIER TODAY TECHNIQUE: Three spot views of the right hip were obtained during hip pinning procedure. FINDINGS: The fixation devices do not breach the joint space. Fracture alignment appears unchanged. 133.8 seconds of fluoroscopy time was utilized to obtain the exam. IMPRESSION: As above <Electronically signed by Jhonny Lomax > 09/15/20 [id number]
--- NOTE | 2020-09-15 17:53 | IPNPDOC ---
Text Note Date of Service The patient was seen on 09/15/20. NOTE Subjective: Patient continues to complain of right hip fracture. Patient stated that pain poorly controlled with IV pain management Objective: GENERAL APPEARANCE: NAD HEENT: no scleral icterus, no JVD, EOMI CARDIOVASCULAR: S1S2 LUNGS: CTA ABDOMEN: soft & not tender w palpitation MUSCULOSKELETAL: no cyanosis, no swelling INTEGUMENT: no generalized pallor NEUROLOGICAL: cranial nerve function from 2-12 intact intact, follows commands, speech not dysarthric Assessment and plan Patient is 85 years old female with past medical history of hypothyroidism, hypertension, hyperlipidemia, osteopenia presented to hospital with right hip fracture Right hip fracture Orthopedics team will proceed with surgery today Continue pain management, added tramadol Hypertension Blood pressure under control Continue home meds Asthma Not in acute exacerbation Continue inhalers Hyperlipidemia Continue home meds DVT prophylaxis Heparin 5000 twice daily VS,Fishbone, I+O VS, Fishbone, I+O Laboratory Tests 09/15/20 06:09 Vital Signs Date Time Temp Pulse Resp B/P (MAP) Pulse Ox O2 Delivery O2 Flow Rate FiO2 09/15/20 14:00 98.5 70 18 159/83 (108) 96 09/15/20 06:00 Room Air I&O- Last 24 Hours up to 6 AM 09/15/20 06:00 Intake Total 885 ml Output Total 1300 ml Balance -415 ml JOSE LUIS SRIVASTAVA DO Sep 15, 2020 17:53
[2020-09-15] MEDS ORDERED: ALBUTEROL 90 MCG/ACT 8GM HFA INHALER INH PRN (18:00)
[2020-09-15] MEDS ORDERED: fentaNYL 100 MCG/2 ML INJECTION (J3010) IV PRN (18:05)
[2020-09-15] MEDS ORDERED: LR 1,000 ML IV SCH ×2 (18:05→18:10)
[2020-09-15] MEDS ORDERED: PERCOCET 5MG/325MG TAB PO PRN (18:05)
[2020-09-15] MEDS ORDERED: ONDANSETRON 4MG/2ML VIAL IV PRN ×2 (18:05→18:25)
[2020-09-15] MEDS ORDERED: METOCLOPRAMIDE INJ 10MG/2ML VIAL (J2765 PER 1) IV PRN (18:05)
[2020-09-15] MEDS ORDERED: ACETAMINOPHEN TAB 650MG DOSE (2X325MG) PO PRN (18:25)
[2020-09-15] MEDS ORDERED: HEPARIN SOD (PORCINE) 5000UNITS/ML 1ML VIAL/SYRINGE SQ SCH (21:00)
[2020-09-16] MEDS: PERCOCET 5MG/325MG TAB PO PRN ×3 (00:58→14:58)
[2020-09-16 06:00] VITALS: BP 136/57
[2020-09-16] MEDS: LEVOTHYROXINE 125MCG TABLET (0.125MG) PO SCH (06:52)
[2020-09-16 07:06] LABS: HEMATOCRIT 30.7 % (36.0-47.0); HEMOGLOBIN 10.1 g/dl (12.0-15.5); MEAN CORPUSCULAR HEMOGLOBIN 28.9 pg (27.0-33.0); MEAN CORPUSCULAR HGB CONC 32.9 g/dl (32.0-36.5); MEAN CORPUSCULAR VOLUME 87.7 fl (80.0-96.0); PLATELET COUNT, AUTOMATED 168 10^3/uL (150-450); WHITE BLOOD COUNT 7.9 10^3/uL (4.0-10.0)
[2020-09-16 07:30] LABS: BLOOD UREA NITROGEN 9 MG/DL (7-18); CALCIUM LEVEL 8.4 MG/DL (8.8-10.2); CARBON DIOXIDE LEVEL 25 MEQ/L (21-32); CHLORIDE LEVEL 109 MEQ/L (98-107); GLOMERULAR FILTRATION RATE > 60.0 (>32); GLUCOSE, FASTING 72 MG/DL (70-100); MAGNESIUM LEVEL 1.9 MG/DL (1.8-2.4); SODIUM LEVEL 142 MEQ/L (136-145)
[2020-09-16] MEDS: PANTOPRAZOLE 40MG TAB (PROTONIX) PO SCH (08:43)
[2020-09-16 09:00] VITALS: O2SAT 93
--- NOTE | 2020-09-16 10:11 | RO ---
OPERATIVE NOTE DATE OF OPERATION: 09/15/2020 PREOPERATIVE DIAGNOSIS: Right valgus impacted femoral neck fracture. POSTOPERATIVE DIAGNOSIS: Right valgus impacted femoral neck fracture. PLANNED PROCEDURE: Right hip open reduction and internal fixation. PROCEDURE PERFORMED: Right hip open reduction and internal fixation (Synthes femoral neck system). SURGEON: Dr. Pierce Schneider CLOTH PRINTER HELPER: Dr. Nowak ANESTHESIA: Spinal anesthetic. ESTIMATED BLOOD LOSS: 50 mL COMPLICATIONS: None. OPERATIVE PREAMBLE: This 85-year-old female had a mechanical fall, sustained a valgus impacted femoral neck. We talked about the pros and cons, risks and benefits going ahead with the right hip open reduction and internal fixation. She wished to proceed. I saw her in preoperative holding, confirmed the patient's site and that right lower extremity was marked appropriately. The patient has no further concerns or questions. DESCRIPTION OF PROCEDURE: The patient was brought to the operating theater. She was administered spinal anesthetic. She was placed supine on the traction fracture table setup with the right leg in slight traction, internal rotation, the left leg attached to the medial post in scissoring position, appropriately padded on both sides. AP and lateral radiographs taken to confirm appropriate alignment and reduction. The right lower extremity was prepped and draped in the usual sterile fashion with chlorhexidine based prep solution, allowing the prep solution over three minutes drying time prior to draping. A preoperative time-out was performed to confirm the site, patient, and surgery. Two grams of IV Ancef was administered prior to the start of the case. I began by inserting an anterior rotation wire, a 3.2 mm partially threaded guidewire anterior and superior in the neck and head. I made a small two-inch incision just distal and inferior to that. I used the guide system for inserting the guidewire for the Synthes femoral neck system. I inserted this slightly inferior in the femoral neck and into the subchondral bone on both AP and lateral radiographs in the middle of the femoral neck on the lateral radiograph. I measured this to be 90 mm. I reamed up to 85 mm. However, this did not appear to be contacting laterally for the proposed side plates so I backed off the reamer to 80 mm, reamed slightly the lateral aspect of the femoral cortex and then inserted and assembled the 80 mm with two-hole side plates, Synthes femoral neck system and impacted this into place and then ensured on the lateral radiograph the two fully-threaded cortical locking screws were appropriately placed down the length of the lateral cortex. I drilled and inserted two 5.0 mm locking screws both 46 mm long and locked these into place using the torque limiter. I then drilled and then placed the anterior rotation screw. I removed the guidewire prior to inserting the anterior rotation screw and then finally removed the insertion guide as well as the antirotation wire. I took final AP and lateral radiographs to confirm appropriate position of the fracture as well as the implant and saved these onto the system. The wounds were thoroughly irrigated with normal saline followed by closure of the subcutaneous tissue with 2-0 Vicryl sutures and the skin with 3-0 Monocryl. The skin was cleaned with wet-to-dry dressing followed by application of Steri-Strips, Adaptic, 4x8 gauze and abdominal pad dressing and cloth tape. The patient was taken out of the traction setup, transferred of the operating room table and taken to the postanesthesia care unit in stable condition. All sponge, needle, and instrument counts were correct. No complications. Estimated blood loss: 50 cc. PLAN FOR PATIENT: Weightbearing as tolerated with walker, receive PT and OT while admitted to the hospitalist service while pending safety for discharge home and followup in the office in two weeks time. VTE prophylaxis with Xarelto 10 mg p.o. once daily for the next 35 days starting 24 hours after surgery. MTDD
[2020-09-16] MEDS: IRBESARTAN 150MG TAB PO SCH (11:34)
--- NOTE | 2020-09-16 11:39 | IPNPDOC ---
Text Note Date of Service The patient was seen on 09/16/20. NOTE Subjective: Patient tolerated procedure well yesterday. She complains of mod erate right hip pain Objective: GENERAL APPEARANCE: NAD HEENT: no scleral icterus, no JVD, EOMI CARDIOVASCULAR: S1S2 LUNGS: CTA ABDOMEN: soft & not tender w palpitation MUSCULOSKELETAL: no cyanosis, no swelling INTEGUMENT: no generalized pallor NEUROLOGICAL: cranial nerve function from 2-12 intact intact, follows commands, speech not dysarthric Assessment and plan Patient is 85 years old female with past medical history of hypothyroidism, hypertension, hyperlipidemia, osteopenia presented to the hospital with right hip fracture Right hip fracture Orthopedics team follows patient Continue pain management Xarelto 10 mg daily for the next 35 days Weightbearing as tolerated with walker PT/OT Hypertension Blood pressure under control Continue home meds Asthma Not in acute exacerbation Continue inhalers Hyperlipidemia Continue home meds DVT prophylaxis With Xarelto VS,Fishbone, I+O VS, Fishbone, I+O Laboratory Tests 09/16/20 06:17 Vital Signs Date Time Temp Pulse Resp B/P (MAP) Pulse Ox O2 Delivery O2 Flow Rate FiO2 09/16/20 11:34 136/57 09/16/20 09:13 18 Room Air 09/16/20 06:00 97.8 82 98 09/15/20 22:00 2.0 I&O- Last 24 Hours up to 6 AM 09/16/20 06:00 Intake Total 1450 ml Output Total 1900 ml Balance -450 ml JOSE LUIS SRIVASTAVA DO Sep 16, 2020 11:39
[2020-09-16 14:00] VITALS: BP 155/83
[2020-09-16] MEDS ORDERED: RIVAROXABAN 10 MG TAB (XARELTO) PO SCH (18:00)
[2020-09-16 19:54] VITALS: BP 135/59
[2020-09-16 21:00] VITALS: O2SAT 95
[2020-09-17] MEDS: LEVOTHYROXINE 125MCG TABLET (0.125MG) PO SCH (06:15)
[2020-09-17 06:16] VITALS: BP 171/86
[2020-09-17 06:31] LABS: HEMATOCRIT 32.4 % (36.0-47.0); HEMOGLOBIN 10.9 g/dl (12.0-15.5); MEAN CORPUSCULAR HEMOGLOBIN 28.8 pg (27.0-33.0); MEAN CORPUSCULAR HGB CONC 33.6 g/dl (32.0-36.5); MEAN CORPUSCULAR VOLUME 85.7 fl (80.0-96.0); PLATELET COUNT, AUTOMATED 181 10^3/uL (150-450); RED BLOOD COUNT 3.78 10^6/uL (4.00-5.40); WHITE BLOOD COUNT 8.6 10^3/uL (4.0-10.0)
[2020-09-17 06:58] LABS: BLOOD UREA NITROGEN 11 MG/DL (7-18); CALCIUM LEVEL 8.5 MG/DL (8.8-10.2); CARBON DIOXIDE LEVEL 27 MEQ/L (21-32); CHLORIDE LEVEL 107 MEQ/L (98-107); CREATININE FOR GFR 0.56 MG/DL (0.55-1.30); GLOMERULAR FILTRATION RATE > 60.0 (>32); GLUCOSE, FASTING 99 MG/DL (70-100); MAGNESIUM LEVEL 1.9 MG/DL (1.8-2.4); POTASSIUM SERUM 3.9 MEQ/L (3.5-5.1); SODIUM LEVEL 140 MEQ/L (136-145)
[2020-09-17 07:11] VITALS: BP 176/82
[2020-09-17 08:15] VITALS: BP 176/82
[2020-09-17] MEDS: IRBESARTAN 150MG TAB PO SCH (08:15)
[2020-09-17] MEDS: PANTOPRAZOLE 40MG TAB (PROTONIX) PO SCH (08:15)
[2020-09-17 10:49] VITALS: BP 140/78
[2020-09-17] MEDS: PERCOCET 5MG/325MG TAB PO PRN (11:04)
[2020-09-17] MEDS ORDERED: PERCOCET PO (11:11)
[2020-09-17] MEDS ORDERED: XARE10TA PO ×2 (11:11→11:16)
[2020-09-17] MEDS ORDERED: ACET1TAB55 PO (11:11)
[2020-09-17 14:00] VITALS: BP 149/98
--- NOTE | 2020-09-17 14:26 | DS.PDOC ---
Discharge Summary General Date of Admission Sep 14, 2020 at 17:01 Date of Discharge 09/17/20 Discharge Summary PROCEDURES PERFORMED DURING STAY: [None]. ADMITTING DIAGNOSES: Right hip fracture Hypertension Asthma Hyperlipidemia DISCHARGE DIAGNOSES: Right hip fracture Hypertension Asthma Hyperlipidemia COMPLICATIONS/CHIEF COMPLAINT: Closed Right Hip Fracture. HISTORY OF PRESENT ILLNESS: Patient is 85 years old female with past medical history of hypothyroidism, hypertension, hyperlipidemia, osteopenia presented to the hospital with right hip fracture HOSPITAL COURSE: During the hospital stay the following history addressed Right hip fracture, the surgery was done on 09/15/20 Xarelto 10 mg daily for the next 35 days Weightbearing as tolerated with walker PT/OT Hypertension Blood pressure under control Continue home meds Asthma Not in acute exacerbation Continue inhalers Hyperlipidemia Continue home meds DISCHARGE MEDICATIONS: Please see below. ALLERGIES: Please see below. PHYSICAL EXAMINATION ON DISCHARGE: VITAL SIGNS: Please see below. GENERAL APPEARANCE: NAD HEENT: no scleral icterus, no JVD, EOMI CARDIOVASCULAR: S1S2 LUNGS: CTA ABDOMEN: soft & not tender w palpitation MUSCULOSKELETAL: no cyanosis, no swelling INTEGUMENT: no generalized pallor NEUROLOGICAL: cranial nerve function from 2-12 intact intact, follows commands, speech not dysarthric LABORATORY DATA: Please see below. PROGNOSIS: Fair ACTIVITY: [As tolerated]. DIET: Cardiac DISCHARGE INSTRUCTIONS: Follow instruction from orthopedic team ITEMS TO FOLLOWUP ON ON OUTPATIENT: Follow-up with orthopedic surgeon in 2 weeks, follow-up with PCP in 3 to 5 days DISCHARGE CONDITION: [Stable]. TIME SPENT ON DISCHARGE: 40minutes. Vital Signs/I&Os Vital Signs Date Time Temp Pulse Resp B/P (MAP) Pulse Ox O2 Delivery O2 Flow Rate FiO2 09/17/20 11:34 18 Room Air 09/17/20 10:49 140/78 (98) 09/17/20 06:16 98.1 87 96 09/15/20 22:00 2.0 I&O- Last 24 Hours up to 6 AM 09/17/20 06:00 Intake Total 1560 ml Output Total 1800 ml Balance -240 ml Laboratory Data Labs 24H Laboratory Tests 2 09/17/20 05:44: Nucleated Red Blood Cells % (auto) 0.0, Anion Gap 6L, Glomerular Filtration Rate > 60.0, Calcium Level 8.5L, Magnesium Level 1.9 CBC/BMP Laboratory Tests 09/17/20 05:44 Discharge Medications Scheduled Beclomethasone Dipropionate (Qvar Redihaler) 80 Mcg/Act Hfa.aeroba, 1 PUFF INH BID, (Reported) Fexofenadine HCl (Michelle Allergy) 180 Mg Tablet, 180 MG PO DAILY, (Reported) Irbesartan (Irbesartan) 300 Mg Tablet, 300 MG PO DAILY, (Reported) Levothyroxine Sodium (Levothyroxine Sodium) 125 Mcg Tablet, 125 MCG PO DAILY, (Reported) Pantoprazole Sodium (Pantoprazole Sodium) 40 Mg Tablet.dr, 40 MG PO DAILY, (Reported) Potassium Gluconate (Potassium) 99 Mg Tablet, 99 MG PO TID, (Reported) Rivaroxaban (Xarelto) 10 Mg Tablet, 10 MG PO DAILY@18 Sodium Chloride (Nasal [place]) 44 Ml [place], 1 SPRAY NARES BID, (Reported) Scheduled PRN Acetaminophen (Acetaminophen) 325 Mg Tablet, 650 MG PO Q6HP PRN for MILD PAIN (PS 1-4) Albuterol Sulfate (Proair Hfa) 8.5 Gm Hfa.aer.ad, 2 PUFF INH Q6H PRN for SOB/ WHEEZING, (Reported) Oxycodone/Acetaminophen (Oxycodone-Acetaminophen 5-325) 1 Each Tablet, 1 TAB PO Q6HP PRN for SEVERE PAIN (PS 8-10) Allergies Coded Allergies: codeine (Verified Adverse Reaction, Unknown, Nausea, 09/14/20) JOSE LUIS SRIVASTAVA DO Sep 17, 2020 14:26
--- NOTE | 2020-09-18 08:00 | IPN ---
PROGRESS NOTE DATE: 09/16/2020 CHIEF COMPLAINT: Postoperative day #1 right hip open reduction internal fixation for internal neck fracture. HISTORY OF PRESENT ILLNESS: This 85-year-old female had a mechanical fall. She subsequently underwent fixation with Synthes femoral neck system. She is doing well, she is seen on 5 cantu, no concerns or complaints. She is already doing quite well up with physical therapy. PHYSICAL EXAMINATION: This is a well-appearing, 85-year-old female, vital signs are stable. She is doing well, quite pleasant, communicates appropriately. Incision is clean and dry, dressing changed today, Steri-Strips in place, she had no drainage or redness or swelling. Foot is warm and well-perfused, strong pedal pulses, she is able to dorsiflex and plantar flex her foot. ASSESSMENT AND PLAN: This 85-year-old female can continue to be weightbearing as tolerated. I have let her know that ideally she could be slightly protective weightbearing with a walker for the first 6 weeks, although some patients are unable to manage this. Physical therapy (PT), prophylaxis Xarelto 10 mg by mouth once a day, and followup in the office in 2 weeks' time. She understands and no further questions. HERNÁN
== END 2020-09-17 15:01 | disposition home health service (06) | DRG 482 ==
LOC: M ED 15:33 → M ED INP 17:01 → ENRESERV 21:59 → M MS5PR 09-15 00:53
PROVIDERS: ADMIT Family Medicine; ATTEND Internal Medicine
PROC: 0QS704Z Reposition Left Upper Femur with Internal Fixation Device, Open Approach (ICD-10-PCS; principal; 2020-09-15 16:55)
DX: S72.002A Fracture of unspecified part of neck of left femur, initial encounter for closed fracture (principal); W18.09XA Striking against other object with subsequent fall, initial encounter; Y93.9 Activity, unspecified; Y99.8 Other external cause status; Y93.89 Activity, other specified; E03.9 Hypothyroidism, unspecified; I10 Essential (primary) hypertension; J45.909 Unspecified asthma, uncomplicated; L40.9 Psoriasis, unspecified; E78.5 Hyperlipidemia, unspecified; M85.80 Other specified disorders of bone density and structure, unspecified site; K21.9 Gastro-esophageal reflux disease without esophagitis; I35.0 Nonrheumatic aortic (valve) stenosis; Z98.41 Cataract extraction status, right eye; Z98.42 Cataract extraction status, left eye; Z90.49 Acquired absence of other specified parts of digestive tract; Z85.828 Personal history of other malignant neoplasm of skin; Z87.891 Personal history of nicotine dependence; Z79.899 Other long term (current) drug therapy; Z88.5 Allergy status to narcotic agent

== ENCOUNTER → 2020-09-14 | Outpatient (CLI) | payer MEDICARE ==
[~2020-09-14] MED LIST: ACET1TAB55 PO; ALLE180T33 PO; EQ S0.65 NARES; IRBE300T7 PO; LEVO125T4 PO; PANT40TA29 PO; PERCOCET PO; POTA99TA14 PO; PROAAER10 INH; QVAR80AE8 INH; XARE10TA PO
[2020-09-14 14:17] LABS: BLOOD UREA NITROGEN 12 MG/DL (7-18); CALCIUM LEVEL 9.3 MG/DL (8.8-10.2); CARBON DIOXIDE LEVEL 26 MEQ/L (21-32); CHLORIDE LEVEL 104 MEQ/L (98-107); CREATININE FOR GFR 0.67 MG/DL (0.55-1.30); GLOMERULAR FILTRATION RATE > 60.0 (>32); GLUCOSE, FASTING 123 MG/DL (70-100); POTASSIUM SERUM 3.9 MEQ/L (3.5-5.1); SODIUM LEVEL 138 MEQ/L (136-145)
== END ==
LOC: M PLAIMG 11:43 → M PLALAB 11:43
PROVIDERS: ATTEND Nurse Practitioner Family
DX: I10 Essential (primary) hypertension (principal)

== ENCOUNTER → 2020-10-01 | Outpatient (CLI) | payer MEDICARE ==
--- NOTE | 2020-10-01 11:54 | REP ---
INDICATION: ENCOUNTER FOR OTHER ORTHOPEDIC AFTERCARE. COMPARISON: Comparison right hip radiographs are from September 14, 2020.. TECHNIQUE: AP and frogleg views. FINDINGS: Patient is status post pinning for right femoral neck fracture. Alignment is unchanged. There is chondrocalcinosis at the hip. Diffuse osteopenia is noted. IMPRESSION: Status post pinning for subcapital fracture right hip. <Electronically signed by Manny Rodriguez > 10/01/20 [id number]
== END ==
LOC: M SOG 10:29
PROVIDERS: ATTEND Orthopaedic Surgery Sports Medicine
DX: Z47.89 Encounter for other orthopedic aftercare (principal)

== ENCOUNTER → 2020-10-29 | Outpatient (CLI) | payer MEDICARE ==
--- NOTE | 2020-10-29 10:53 | REP ---
INDICATION: FX COMPARISON: 10/01/2020 TECHNIQUE: AP and frog-lateral views of the right hip FINDINGS: Advanced osteopenia and degenerative changes. Evidence for prior proximal femur fracture fixation. No obvious acute fracture or dislocation. IMPRESSION: Stable examination compared to 10/01/2020 <Electronically signed by Jonh Kaye > 10/29/20 [id number]
== END ==
LOC: M SOG 09:08
PROVIDERS: ATTEND Orthopaedic Surgery Sports Medicine
DX: S72.001D Fracture of unspecified part of neck of right femur, subsequent encounter for closed fracture with routine healing (principal); M85.851 Other specified disorders of bone density and structure, right thigh

== ENCOUNTER → 2020-11-15 | Outpatient (CLI) | payer MEDICARE ==
[2020-11-15 11:00] LABS: BLOOD UREA NITROGEN 14 MG/DL (7-18); CALCIUM LEVEL 9.5 MG/DL (8.8-10.2); CARBON DIOXIDE LEVEL 28 MEQ/L (21-32); CHLORIDE LEVEL 110 MEQ/L (98-107); CREATININE FOR GFR 0.62 MG/DL (0.55-1.30); GLOMERULAR FILTRATION RATE > 60.0 (>32); GLUCOSE, FASTING 103 MG/DL (70-100); POTASSIUM SERUM 4.3 MEQ/L (3.5-5.1); SODIUM LEVEL 141 MEQ/L (136-145)
== END ==
LOC: M PLALAB 07:46
PROVIDERS: ATTEND Nurse Practitioner Family
DX: I10 Essential (primary) hypertension (principal)

== ENCOUNTER → 2020-12-08 | Outpatient (REF) | payer MEDICARE ==
[2020-12-09 12:30] LABS: CREATININE, URINE 81.6 MG/DL; MALB URINE SIEMENS 32.7 MG/L
== END ==
LOC: M SFHCPLAZ 13:19
PROVIDERS: ATTEND Nurse Practitioner Family
DX: I10 Essential (primary) hypertension (principal)

== ENCOUNTER → 2020-12-10 | Outpatient (CLI) | payer MEDICARE ==
--- NOTE | 2020-12-10 09:43 | REP ---
INDICATION: RT FEMORAL FX COMPARISON: 10/29/2020 TECHNIQUE: AP and cross-table lateral views. FINDINGS: Patient is status post orthopedic fixation for proximal femur fracture. Examination appears stable as compared to prior. No new acute fracture or dislocation. Underlying age-related arthritic changes noted. IMPRESSION: Stable appearance of the right hip fixation. <Electronically signed by Jonh Kaye > 12/10/20 [id number]
== END ==
LOC: M SOG 09:26
PROVIDERS: ATTEND Orthopaedic Surgery Sports Medicine
DX: S72.001D Fracture of unspecified part of neck of right femur, subsequent encounter for closed fracture with routine healing (principal); W18.30XD Fall on same level, unspecified, subsequent encounter; Y92.009 Unspecified place in unspecified non-institutional (private) residence as the place of occurrence of the external cause

== ENCOUNTER → 2021-03-25 | Outpatient (CLI) | payer MEDICARE | LOC: M SOG 09:22 | PROVIDERS: ATTEND Orthopaedic Surgery Sports Medicine | DX: Z47.89 Encounter for other orthopedic aftercare (principal) ==

== ENCOUNTER → 2021-05-12 | Outpatient (CLI) | payer MEDICARE ==
[2021-05-12 10:13] LABS: BASO % 0.7 % (0.0-1.0); EOS # 0.2 10^3/uL (0.0-0.5); EOS % 3.8 % (0.0-3.0); HEMATOCRIT 40.4 % (36.0-47.0); HEMOGLOBIN 13.3 g/dl (12.0-15.5); LYMPH # 1.6 10^3/uL (1.5-5.0); LYMPH % 28.1 % (24.0-44.0); MEAN CORPUSCULAR HEMOGLOBIN 27.9 pg (27.0-33.0); MEAN CORPUSCULAR HGB CONC 32.9 g/dl (32.0-36.5); MEAN CORPUSCULAR VOLUME 84.7 fl (80.0-96.0); MONO # 0.4 10^3/uL (0.0-0.8); NEUTROPHILS # 3.4 10^3/uL (1.5-8.5); NEUTROPHILS % 60.2 % (36.0-66.0); PLATELET COUNT, AUTOMATED 174 10^3/uL (150-450); RED BLOOD COUNT 4.77 10^6/uL (4.00-5.40); WHITE BLOOD COUNT 5.6 10^3/uL (4.0-10.0)
[2021-05-12 10:51] LABS: ALBUMIN 3.8 GM/DL (3.2-5.2); ALT/SGPT 20 U/L (12-78); BILIRUBIN,TOTAL 0.6 MG/DL (0.2-1.0); BLOOD UREA NITROGEN 12 MG/DL (7-18); CALCIUM LEVEL 9.9 MG/DL (8.8-10.2); CARBON DIOXIDE LEVEL 29 MEQ/L (21-32); CHLORIDE LEVEL 110 MEQ/L (98-107); CHOLESTEROL LEVEL 214 MG/DL (<200); CHOLESTEROL RISK RATIO 3.627 (<5); CREATININE FOR GFR 0.72 MG/DL (0.55-1.30); FREE T4 1.37 NG/DL (0.76-1.46); GLOMERULAR FILTRATION RATE > 60.0 (>32); GLUCOSE, FASTING 90 MG/DL (70-100); HDL CHOLESTEROL 59 MG/DL (>40); LDL CHOLESTEROL 124 MG/DL (<100); NON-HDL-C 155 MG/DL; POTASSIUM SERUM 4.6 MEQ/L (3.5-5.1); SODIUM LEVEL 143 MEQ/L (136-145); THYROID STIMULATING HORMONE 0.381 uIU/ML (0.358-3.740); TOTAL PROTEIN 6.8 GM/DL (6.4-8.2); TRIGLYCERIDES LEVEL 156 MG/DL (<150)
== END ==
LOC: M PLALAB 08:05 → M LAB 08:05
PROVIDERS: ATTEND Physician Assistant Medical
DX: E78.2 Mixed hyperlipidemia (principal)

== ENCOUNTER → 2021-06-09 | Outpatient (CLI) | payer MEDICARE | LOC: M WHC 08:58 | PROVIDERS: ATTEND Physician Assistant Medical | DX: Z12.31 Encounter for screening mammogram for malignant neoplasm of breast (principal); M81.0 Age-related osteoporosis without current pathological fracture ==

== ENCOUNTER → 2021-06-22 | Outpatient (CLI) | payer MEDICARE ==
[2021-06-22 11:38] LABS: FREE T4 1.2 NG/DL (0.76-1.46); THYROID STIMULATING HORMONE 0.415 uIU/ML (0.358-3.740)
== END ==
LOC: M PLALAB 07:40
PROVIDERS: ATTEND Physician Assistant Medical
DX: E03.9 Hypothyroidism, unspecified (principal)

== ENCOUNTER → 2021-10-11 | Outpatient (CLI) | payer MEDICARE ==
[2021-10-11 11:04] LABS: FREE T4 1.08 NG/DL (0.76-1.46); THYROID STIMULATING HORMONE 1.19 uIU/ML (0.358-3.740)
== END ==
LOC: M PLALAB 07:16
PROVIDERS: ATTEND Physician Assistant Medical
DX: E03.9 Hypothyroidism, unspecified (principal)

== ENCOUNTER → 2021-11-10 | Outpatient (CLI) | payer MEDICARE ==
[2021-11-10 11:31] LABS: CALCIUM LEVEL 9.7 MG/DL (8.8-10.2)
[2021-11-10 13:13] LABS: PTH INTACT 32.4 PG/ML (18.5-88.0); TOTAL 25(OH) VITAMIN D 61.6 NG/ML (30.0-100.0)
== END ==
LOC: M PLALAB 07:15
PROVIDERS: ATTEND Physician Assistant Medical
DX: M85.80 Other specified disorders of bone density and structure, unspecified site (principal)

== ENCOUNTER 2021-11-22 09:30 | Inpatient (IN) | payer MEDICARE ==
[~2021-11-22] VITALS: Ht 160 cm; Wt 60.2 kg
[2021-11-22] MEDS ORDERED: MORPHINE 2 MG/ML 1ML VIAL IV ONE (12:55)
[2021-11-22 13:19] LABS: BASO % 0.5 % (0.0-1.0); EOS # 0.1 10^3/uL (0.0-0.5); EOS % 1.1 % (0.0-3.0); HEMATOCRIT 37.8 % (36.0-47.0); HEMOGLOBIN 12.9 g/dl (12.0-15.5); LYMPH # 1.5 10^3/uL (1.5-5.0); MEAN CORPUSCULAR HEMOGLOBIN 29.7 pg (27.0-33.0); MEAN CORPUSCULAR HGB CONC 34.1 g/dl (32.0-36.5); MEAN CORPUSCULAR VOLUME 87.1 fl (80.0-96.0); MONO # 0.4 10^3/uL (0.0-0.8); MONO % 8.8 % (2.0-8.0); NEUTROPHILS # 2.4 10^3/uL (1.5-8.5); NEUTROPHILS % 55.4 % (36.0-66.0); PLATELET COUNT, AUTOMATED 132 10^3/uL (150-450); RED BLOOD COUNT 4.34 10^6/uL (4.00-5.40); WHITE BLOOD COUNT 4.4 10^3/uL (4.0-10.0)
[2021-11-22 13:49] LABS: RSV AMPLIFICATION NEGATIVE (NEGATIVE)
[2021-11-22 14:02] LABS: ALBUMIN 3.4 GM/DL (3.2-5.2); ALT/SGPT 21 U/L (12-78); BILIRUBIN,DIRECT 0.1 MG/DL (0.0-0.2); BILIRUBIN,TOTAL 0.5 MG/DL (0.2-1.0); BLOOD UREA NITROGEN 17 MG/DL (7-18); CALCIUM LEVEL 9.4 MG/DL (8.8-10.2); CARBON DIOXIDE LEVEL 27 MEQ/L (21-32); CHLORIDE LEVEL 105 MEQ/L (98-107); CREATININE FOR GFR 0.78 MG/DL (0.55-1.30); GLOMERULAR FILTRATION RATE > 60.0 (>32); GLUCOSE, FASTING 84 MG/DL (70-100); POTASSIUM SERUM 4.1 MEQ/L (3.5-5.1); SODIUM LEVEL 137 MEQ/L (136-145); TOTAL PROTEIN 6.4 GM/DL (6.4-8.2)
[2021-11-22] MEDS ORDERED: PRESCAP PO (14:56)
[2021-11-22] MEDS ORDERED: SYNT112T2 PO (14:56)
[2021-11-22] MEDS ORDERED: VITA100093 PO (14:56)
[2021-11-22] MEDS ORDERED: CALC600T60 PO (14:56)
[2021-11-22] MEDS ORDERED: HOME MED LIST COMPLETE! XX SCH (15:00)
[2021-11-22 15:05] LABS: INR 0.88; PARTIAL THROMBOPLASTIN TIME 26.8 SECONDS (25.9-37.0); PROTHROMBIN TIME 12.3 SECONDS (12.7-14.5)
[2021-11-22] MEDS ORDERED: ALBUTEROL 90 MCG/ACT 8GM HFA INHALER INH PRN (15:45)
[2021-11-22] MEDS ORDERED: oxyCODONE 5MG TAB PO PRN ×2 (15:50)
[2021-11-22 17:36] VITALS: BP 158/72
[2021-11-22] MEDS: VITAMIN D 1,000 INTERNATIONAL UNITS TABLET PO SCH (17:52)
[2021-11-22 20:00] VITALS: BP 174/78
[2021-11-22] MEDS: OCUVITE 1 TAB PO SCH (20:49)
[2021-11-22] MEDS: SODIUM CHLORIDE NASAL 0.65% SPRAY BTL (OCEAN) SCH (20:51)
[2021-11-22] MEDS: ACETAMINOPHEN 500 MG TAB PO SCH (20:51)
[2021-11-22] MEDS ORDERED: PANTOPRAZOLE 40MG TAB (PROTONIX) PO SCH (21:00)
[2021-11-22] MEDS: HEPARIN SOD (PORCINE) 5000UNITS/ML 1ML VIAL/SYRINGE SQ SCH (21:43)
[2021-11-23] VITALS (8 sets, daily range): BP systolic 152–167; BP diastolic 70–79
[2021-11-23 05:39] LABS: HEMATOCRIT 34.7 % (36.0-47.0); HEMOGLOBIN 11.4 g/dl (12.0-15.5); MEAN CORPUSCULAR HEMOGLOBIN 29.2 pg (27.0-33.0); MEAN CORPUSCULAR HGB CONC 32.9 g/dl (32.0-36.5); PLATELET COUNT, AUTOMATED 120 10^3/uL (150-450); WHITE BLOOD COUNT 4.6 10^3/uL (4.0-10.0)
[2021-11-23] MEDS: HEPARIN SOD (PORCINE) 5000UNITS/ML 1ML VIAL/SYRINGE SQ SCH ×2 (05:39→14:04)
[2021-11-23] MEDS ORDERED: LEVOTHYROXINE 112MCG TABLET (0.112MG) PO SCH (06:00)
[2021-11-23 06:07] LABS: BLOOD UREA NITROGEN 18 MG/DL (7-18); CALCIUM LEVEL 8.8 MG/DL (8.8-10.2); CARBON DIOXIDE LEVEL 29 MEQ/L (21-32); CHLORIDE LEVEL 106 MEQ/L (98-107); CREATININE FOR GFR 0.68 MG/DL (0.55-1.30); GLOMERULAR FILTRATION RATE > 60.0 (>32); GLUCOSE, FASTING 89 MG/DL (70-100); MAGNESIUM LEVEL 1.9 MG/DL (1.8-2.4); PHOSPHORUS LEVEL 3.4 MG/DL (2.5-4.9); POTASSIUM SERUM 4.2 MEQ/L (3.5-5.1); SODIUM LEVEL 139 MEQ/L (136-145)
[2021-11-23] MEDS ORDERED: IRBESARTAN 150MG TAB PO SCH (09:00)
[2021-11-23] MEDS: SODIUM CHLORIDE NASAL 0.65% SPRAY BTL (OCEAN) SCH (09:34)
[2021-11-23] MEDS: VITAMIN D 1,000 INTERNATIONAL UNITS TABLET PO SCH (09:36)
[2021-11-23] MEDS: ACETAMINOPHEN 500 MG TAB PO SCH (09:36)
[2021-11-23] MEDS: FEXOFENADINE 60MG TAB PO SCH ×2 (09:36→09:37)
[2021-11-23] MEDS: OCUVITE 1 TAB PO SCH (09:36)
[2021-11-23] MEDS ORDERED: OXYC-517 PO (10:43)
[2021-11-23] MEDS ORDERED: ACET-683 PO (10:43)
[2021-11-23] MEDS ORDERED: EPINEPHrine INJ 1 MG/ML 1ML AMP IM PRN (10:45)
[2021-11-23] MEDS ORDERED: methylPREDNISolone 125MG 2ML VIAL IV PRN (10:45)
[2021-11-23] MEDS ORDERED: ALBUTEROL SULFATE 2.5 MG/0.5 ML INH NEB SOLN INH PRN (10:45)
[2021-11-23] MEDS ORDERED: diphenhydrAMINE 50MG/ML VIAL (J1200) IV PRN (10:45)
[2021-11-23] MEDS ORDERED: ALBUTEROL 90 MCG/ACT 8GM HFA INHALER INH PRN (10:45)
[2021-11-23] MEDS ORDERED: NS 1,000 ML IV SCH (10:45)
[2021-11-23] MEDS ORDERED: BEBTELOVIMAB 175MG 2ML VIAL (EUA) IV ONE (14:00)
== END 2021-11-23 15:15 | disposition home or self-care (01) | DRG 183 ==
LOC: M ED 09:30 → M ED INP 15:39 → ENRESERV 17:01 → M PCU 17:39
PROVIDERS: ADMIT Internal Medicine; ATTEND Internal Medicine
DX: S22.42XA Multiple fractures of ribs, left side, initial encounter for closed fracture (principal); U07.1 COVID-19; T79.7XXA Traumatic subcutaneous emphysema, initial encounter; J84.10 Pulmonary fibrosis, unspecified; I10 Essential (primary) hypertension; J45.909 Unspecified asthma, uncomplicated; E03.9 Hypothyroidism, unspecified; E78.5 Hyperlipidemia, unspecified; Z79.890 Hormone replacement therapy; Z79.899 Other long term (current) drug therapy; Z88.5 Allergy status to narcotic agent; E55.9 Vitamin D deficiency, unspecified; L40.9 Psoriasis, unspecified; M85.80 Other specified disorders of bone density and structure, unspecified site; I35.0 Nonrheumatic aortic (valve) stenosis; I70.0 Atherosclerosis of aorta; Z98.41 Cataract extraction status, right eye; Z98.42 Cataract extraction status, left eye; Z90.49 Acquired absence of other specified parts of digestive tract; Z85.828 Personal history of other malignant neoplasm of skin; Z90.710 Acquired absence of both cervix and uterus; Z90.722 Acquired absence of ovaries, bilateral; W22.8XXA Striking against or struck by other objects, initial encounter; Y92.018 Other place in single-family (private) house as the place of occurrence of the external cause; Y93.89 Activity, other specified; Y99.8 Other external cause status

== ENCOUNTER → 2021-12-08 | Outpatient (REF) | payer MEDICARE ==
[~2021-12-08] MED LIST changes: +ACET-683 PO; +CALC600T60 PO; +OXYC-517 PO; +PRESCAP PO; +SYNT112T2 PO; +VITA100093 PO
[2021-12-08 10:25] LABS: BASO % 0.7 % (0.0-1.0); EOS # 0.2 10^3/uL (0.0-0.5); HEMATOCRIT 36.9 % (36.0-47.0); HEMOGLOBIN 12.3 g/dl (12.0-15.5); LYMPH # 1.5 10^3/uL (1.5-5.0); LYMPH % 26.8 % (24.0-44.0); MEAN CORPUSCULAR HEMOGLOBIN 29.5 pg (27.0-33.0); MEAN CORPUSCULAR HGB CONC 33.3 g/dl (32.0-36.5); MEAN CORPUSCULAR VOLUME 88.5 fl (80.0-96.0); MONO # 0.4 10^3/uL (0.0-0.8); NEUTROPHILS # 3.5 10^3/uL (1.5-8.5); NEUTROPHILS % 62.1 % (36.0-66.0); PLATELET COUNT, AUTOMATED 212 10^3/uL (150-450); RED BLOOD COUNT 4.17 10^6/uL (4.00-5.40); WHITE BLOOD COUNT 5.6 10^3/uL (4.0-10.0)
[2021-12-08 10:47] LABS: INR 0.9; PROTHROMBIN TIME 12.5 SECONDS (12.7-14.5)
[2021-12-08 10:48] LABS: PARTIAL THROMBOPLASTIN TIME 27.9 SECONDS (25.9-37.0)
[2021-12-08 11:20] LABS: PERCENT SATURATION 20.8 % (13.2-45.0)
== END ==
LOC: M PLALAB 09:57
PROVIDERS: ATTEND Physician Assistant
DX: D64.9 Anemia, unspecified (principal); Z79.01 Long term (current) use of anticoagulants

== ENCOUNTER → 2022-04-17 | Outpatient (CLI) | payer MEDICARE ==
[2022-04-17 10:43] LABS: BASO # 0.1 10^3/uL (0.0-0.2); BASO % 0.9 % (0.0-1.0); EOS # 0.2 10^3/uL (0.0-0.5); EOS % 2.7 % (0.0-3.0); HEMATOCRIT 39.8 % (36.0-47.0); HEMOGLOBIN 12.9 g/dl (12.0-15.5); MEAN CORPUSCULAR HEMOGLOBIN 28.9 pg (27.0-33.0); MEAN CORPUSCULAR HGB CONC 32.4 g/dl (32.0-36.5); MEAN CORPUSCULAR VOLUME 89.2 fl (80.0-96.0); MONO # 0.5 10^3/uL (0.0-0.8); MONO % 6.4 % (2.0-8.0); NEUTROPHILS # 4.3 10^3/uL (1.5-8.5); NEUTROPHILS % 60.6 % (36.0-66.0); PLATELET COUNT, AUTOMATED 173 10^3/uL (150-450); RED BLOOD COUNT 4.46 10^6/uL (4.00-5.40)
[2022-04-17 11:14] LABS: THYROID STIMULATING HORMONE 2.164 uIU/ML (0.55-4.78)
[2022-04-17 11:16] LABS: ALBUMIN 3.6 G/DL (3.2-5.2); ALKALINE PHOSPHATASE 71 U/L (46-116); ALT/SGPT 13 U/L (7.0-40); AST/SGOT < 8 U/L (<34); BILIRUBIN,TOTAL 0.5 MG/DL (0.3-1.2); BLOOD UREA NITROGEN 14 MG/DL (9-23); CALCIUM LEVEL 9.7 MG/DL (8.3-10.6); CARBON DIOXIDE LEVEL 27 MMOL/L (20-31); CHLORIDE LEVEL 111 MMOL/L (98-107); CREATININE FOR GFR 0.72 MG/DL (0.55-1.30); FREE T4 1.21 NG/DL (0.89-1.76); GLOMERULAR FILTRATION RATE > 60.0 (>32); GLUCOSE, FASTING 92 MG/DL (74-106); POTASSIUM SERUM 4.2 MMOL/L (3.5-5.1); SODIUM LEVEL 141 MMOL/L (136-145); TOTAL PROTEIN 6.6 G/DL (5.7-8.2)
[2022-04-17 11:17] LABS: VITAMIN B12 LEVEL 878 PG/ML (211-911)
== END ==
LOC: M PLALAB 08:35
PROVIDERS: ATTEND Physician Assistant Medical
DX: E03.9 Hypothyroidism, unspecified (principal)

== ENCOUNTER → 2022-06-12 | Outpatient (CLI) | payer MEDICARE | LOC: M WHC 08:56 | PROVIDERS: ATTEND Physician Assistant Medical | DX: Z12.31 Encounter for screening mammogram for malignant neoplasm of breast (principal) ==

== ENCOUNTER → 2022-09-06 | Outpatient (CLI) | payer MEDICARE ==
[2022-09-06 15:03] LABS: BASO # 0.1 10^3/uL (0.0-0.2); BASO % 0.8 % (0.0-1.0); EOS # 0.2 10^3/uL (0.0-0.5); EOS % 2.9 % (0.0-3.0); HEMATOCRIT 37.5 % (36.0-47.0); HEMOGLOBIN 12.4 g/dl (12.0-15.5); LYMPH # 1.7 10^3/uL (1.5-5.0); LYMPH % 26.8 % (24.0-44.0); MEAN CORPUSCULAR HGB CONC 33.1 g/dl (32.0-36.5); MEAN CORPUSCULAR VOLUME 90.8 fl (80.0-96.0); MONO # 0.4 10^3/uL (0.0-0.8); MONO % 6.8 % (2.0-8.0); NEUTROPHILS # 4.1 10^3/uL (1.5-8.5); NEUTROPHILS % 62.2 % (36.0-66.0); PLATELET COUNT, AUTOMATED 158 10^3/uL (150-450); RED BLOOD COUNT 4.13 10^6/uL (4.00-5.40); WHITE BLOOD COUNT 6.5 10^3/uL (4.0-10.0)
[2022-09-06 15:41] LABS: ALBUMIN 3.4 G/DL (3.2-5.2); ALKALINE PHOSPHATASE 70 U/L (46-116); ALT/SGPT 14 U/L (7.0-40); AST/SGOT 21 U/L (<34); BILIRUBIN,TOTAL 0.4 MG/DL (0.3-1.2); BLOOD UREA NITROGEN 16 MG/DL (9-23); CALCIUM LEVEL 9.2 MG/DL (8.3-10.6); CARBON DIOXIDE LEVEL 27 MMOL/L (20-31); CHLORIDE LEVEL 107 MMOL/L (98-107); CREATININE FOR GFR 0.69 MG/DL (0.55-1.30); FERRITIN 40.7 NG/ML (7.3-270.7); GLOMERULAR FILTRATION RATE > 60.0 (>32); GLUCOSE, FASTING 95 MG/DL (74-106); IRON (FE) 32 UG/DL (50-170); MAGNESIUM LEVEL 1.7 MG/DL (1.8-2.4); POTASSIUM SERUM 4.3 MMOL/L (3.5-5.1); SODIUM LEVEL 140 MMOL/L (136-145)
[2022-09-06 15:42] LABS: VITAMIN B12 LEVEL 479 PG/ML (211-911)
== END ==
LOC: M PLALAB 10:07
PROVIDERS: ATTEND Physician Assistant Medical
DX: R25.2 Cramp and spasm (principal); I10 Essential (primary) hypertension; E53.8 Deficiency of other specified B group vitamins; D64.9 Anemia, unspecified

== ENCOUNTER → 2022-10-23 | Outpatient (CLI) | payer MEDICARE ==
[2022-10-23 14:14] LABS: BASO # 0.1 10^3/uL (0.0-0.2); BASO % 0.8 % (0.0-1.0); EOS # 0.2 10^3/uL (0.0-0.5); EOS % 3.6 % (0.0-3.0); HEMOGLOBIN 12.5 g/dl (12.0-15.5); LYMPH # 1.3 10^3/uL (1.5-5.0); LYMPH % 20.5 % (24.0-44.0); MEAN CORPUSCULAR HEMOGLOBIN 30.1 pg (27.0-33.0); MEAN CORPUSCULAR HGB CONC 32.9 g/dl (32.0-36.5); MEAN CORPUSCULAR VOLUME 91.6 fl (80.0-96.0); MONO # 0.5 10^3/uL (0.0-0.8); NEUTROPHILS # 4.4 10^3/uL (1.5-8.5); NEUTROPHILS % 67.8 % (36.0-66.0); PLATELET COUNT, AUTOMATED 170 10^3/uL (150-450); RED BLOOD COUNT 4.15 10^6/uL (4.00-5.40); WHITE BLOOD COUNT 6.4 10^3/uL (4.0-10.0)
[2022-10-23 14:15] LABS: HEMATOCRIT 38.6 % (36.0-47.0)
[2022-10-23 14:20] LABS: IRON (FE) 58 UG/DL (50-170)
[2022-10-23 14:21] LABS: CPK CREATINE PHOSPHOKINASE 93 U/L (34-145)
[2022-10-23 14:24] LABS: ALBUMIN 3.6 G/DL (3.2-5.2); ALKALINE PHOSPHATASE 66 U/L (46-116); ALT/SGPT 14 U/L (7.0-40); AST/SGOT 15 U/L (<34); BILIRUBIN,TOTAL 0.7 MG/DL (0.3-1.2); BLOOD UREA NITROGEN 19 MG/DL (9-23); CALCIUM LEVEL 9.5 MG/DL (8.3-10.6); CARBON DIOXIDE LEVEL 29 MMOL/L (20-31); CHLORIDE LEVEL 106 MMOL/L (98-107); CHOLESTEROL LEVEL 184 MG/DL (<200); CHOLESTEROL RISK RATIO 3.45 (<5); CREATININE FOR GFR 0.89 MG/DL (0.55-1.30); FERRITIN 70.5 NG/ML (7.3-270.7); FREE T4 1.18 NG/DL (0.89-1.76); GLOMERULAR FILTRATION RATE > 60.0 (>32); GLUCOSE, FASTING 92 MG/DL (74-106); HDL CHOLESTEROL 53.2 MG/DL (>40); LDL CHOLESTEROL 104.4 MG/DL (<100); NON-HDL-C 130.8 MG/DL; POTASSIUM SERUM 4.9 MMOL/L (3.5-5.1); SODIUM LEVEL 140 MMOL/L (136-145); TOTAL PROTEIN 6.5 G/DL (5.7-8.2); TRIGLYCERIDES LEVEL 132 MG/DL (<150); VITAMIN B12 LEVEL 390 PG/ML (211-911)
== END ==
LOC: M PLALAB 09:07
PROVIDERS: ATTEND Physician Assistant Medical
DX: I10 Essential (primary) hypertension (principal); D50.9 Iron deficiency anemia, unspecified

== ENCOUNTER → 2023-01-12 | Outpatient (CLI) | payer MEDICARE ==
[2023-01-12 13:31] LABS: BASO # 0.1 10^3/uL (0.0-0.2); BASO % 1.1 % (0.0-1.0); EOS # 0.2 10^3/uL (0.0-0.5); EOS % 3.2 % (0.0-3.0); HEMATOCRIT 35.6 % (36.0-47.0); HEMOGLOBIN 12.1 g/dl (12.0-15.5); LYMPH # 1.6 10^3/uL (1.5-5.0); LYMPH % 25.4 % (24.0-44.0); MEAN CORPUSCULAR HEMOGLOBIN 31.1 pg (27.0-33.0); MEAN CORPUSCULAR VOLUME 91.5 fl (80.0-96.0); MONO # 0.4 10^3/uL (0.0-0.8); MONO % 6.9 % (2.0-8.0); NEUTROPHILS # 3.9 10^3/uL (1.5-8.5); NEUTROPHILS % 62.8 % (36.0-66.0); PLATELET COUNT, AUTOMATED 196 10^3/uL (150-450); RED BLOOD COUNT 3.89 10^6/uL (4.00-5.40); WHITE BLOOD COUNT 6.3 10^3/uL (4.0-10.0)
[2023-01-12 13:38] LABS: FERRITIN 78.8 NG/ML (7.3-270.7); FREE T4 1.28 NG/DL (0.89-1.76); THYROID STIMULATING HORMONE 2.007 uIU/ML (0.55-4.78)
== END ==
LOC: M PLALAB 10:06
PROVIDERS: ATTEND Physician Assistant Medical
DX: R71.0 Precipitous drop in hematocrit (principal); E07.9 Disorder of thyroid, unspecified

== ENCOUNTER → 2023-04-10 | Outpatient (CLI) | payer MEDICARE ==
[~2023-04-10] MED LIST changes: +IRBE300T25 PO; -IRBE300T7 PO
[2023-04-10 17:19] LABS: BASO # 0.1 10^3/uL (0.0-0.2); BASO % 0.7 % (0.0-1.0); EOS # 0.2 10^3/uL (0.0-0.5); HEMATOCRIT 36.6 % (36.0-47.0); HEMOGLOBIN 12.3 g/dl (12.0-15.5); LYMPH # 1.9 10^3/uL (1.5-5.0); LYMPH % 23.5 % (24.0-44.0); MEAN CORPUSCULAR HEMOGLOBIN 30.8 pg (27.0-33.0); MEAN CORPUSCULAR HGB CONC 33.6 g/dl (32.0-36.5); MEAN CORPUSCULAR VOLUME 91.5 fl (80.0-96.0); MONO # 0.6 10^3/uL (0.0-0.8); MONO % 7.7 % (2.0-8.0); NEUTROPHILS # 5.4 10^3/uL (1.5-8.5); NEUTROPHILS % 65.7 % (36.0-66.0); PLATELET COUNT, AUTOMATED 195 10^3/uL (150-450); WHITE BLOOD COUNT 8.2 10^3/uL (4.0-10.0)
== END ==
LOC: M PLALAB 16:18
PROVIDERS: ATTEND Physician Assistant Medical
DX: I10 Essential (primary) hypertension (principal); D50.9 Iron deficiency anemia, unspecified

== ENCOUNTER → 2023-05-09 | Outpatient (CLI) | payer MEDICARE ==
[~2023-05-09] MED LIST changes: +E-Z-GAS II EFFERVESCENT PACKET (SODIUM BICARB./CITRIC ACID/SIMETHICONE) As Ordered ONE; +E-Z-HD 98% w/w 340GM SUSP BTL As Ordered ONE; +E-Z-PAQUE 96% w/w SUSP 176GM BTL As Ordered ONE
== END ==
LOC: M RAD 08:57
PROVIDERS: ATTEND Physician Assistant Medical
DX: K21.9 Gastro-esophageal reflux disease without esophagitis (principal)

== ENCOUNTER → 2023-06-15 | Outpatient (CLI) | payer MEDICARE ==
[~2023-06-15] MED LIST changes: -E-Z-GAS II EFFERVESCENT PACKET (SODIUM BICARB./CITRIC ACID/SIMETHICONE) As Ordered ONE; -E-Z-HD 98% w/w 340GM SUSP BTL As Ordered ONE; -E-Z-PAQUE 96% w/w SUSP 176GM BTL As Ordered ONE
== END ==
LOC: M WHC 09:52
PROVIDERS: ATTEND Physician Assistant Medical
DX: Z12.31 Encounter for screening mammogram for malignant neoplasm of breast (principal)

== ENCOUNTER → 2023-08-13 | Outpatient (CLI) | payer MEDICARE | LOC: M RAD 11:46 | PROVIDERS: ATTEND Surgery | DX: L97.922 Non-pressure chronic ulcer of unspecified part of left lower leg with fat layer exposed (principal); R68.89 Other general symptoms and signs ==

== ENCOUNTER → 2023-12-25 | Outpatient (CLI) | payer MEDICARE ==
[2023-12-25 11:17] LABS: BASO # 0.1 10^3/uL (0.0-0.2); BASO % 1.2 % (0.0-1.0); EOS # 0.3 10^3/uL (0.0-0.5); EOS % 4.1 % (0.0-3.0); HEMATOCRIT 34.2 % (36.0-47.0); HEMOGLOBIN 11.3 g/dl (12.0-15.5); LYMPH # 1.2 10^3/uL (1.5-5.0); LYMPH % 19.1 % (24.0-44.0); MEAN CORPUSCULAR HEMOGLOBIN 30.1 pg (27.0-33.0); MONO # 0.5 10^3/uL (0.0-0.8); MONO % 7.6 % (2.0-8.0); NEUTROPHILS # 4.1 10^3/uL (1.5-8.5); NEUTROPHILS % 67.5 % (36.0-66.0); PLATELET COUNT, AUTOMATED 179 10^3/uL (150-450); RED BLOOD COUNT 3.76 10^6/uL (4.00-5.40); WHITE BLOOD COUNT 6.1 10^3/uL (4.0-10.0)
[2023-12-25 11:25] LABS: ALBUMIN 3.7 G/DL (3.2-5.2); BILIRUBIN,TOTAL 0.6 MG/DL (0.3-1.2); CHOLESTEROL RISK RATIO 4.27 (<5); CREATININE FOR GFR 0.99 MG/DL (0.55-1.30); FERRITIN 60.9 NG/ML (7.3-270.7); GLOMERULAR FILTRATION RATE 56.4 (>32); HDL CHOLESTEROL 46.5 MG/DL (>40); LDL CHOLESTEROL 103.1 MG/DL (<100); NON-HDL-C 152.5 MG/DL; POTASSIUM SERUM 4.6 MMOL/L (3.5-5.1); THYROID STIMULATING HORMONE 1.249 uIU/ML (0.55-4.78); TOTAL PROTEIN 6.7 G/DL (5.7-8.2)
[2023-12-25 11:26] LABS: FREE T4 1.57 NG/DL (0.89-1.76)
== END ==
LOC: M PLALAB 07:57
PROVIDERS: ATTEND Physician Assistant Medical
DX: I10 Essential (primary) hypertension (principal); D50.9 Iron deficiency anemia, unspecified

== ENCOUNTER → 2023-12-31 | Outpatient (CLI) | payer MEDICARE | LOC: M WHC 07:58 | PROVIDERS: ATTEND Physician Assistant Medical | DX: Z00.00 Encounter for general adult medical examination without abnormal findings (principal); Z87.81 Personal history of (healed) traumatic fracture; M81.0 Age-related osteoporosis without current pathological fracture ==

== ENCOUNTER → 2024-05-26 | Outpatient (CLI) | payer MEDICARE | LOC: M RAD 10:34 | PROVIDERS: ATTEND Surgery | DX: R52 Pain, unspecified (principal); I73.9 Peripheral vascular disease, unspecified ==

== ENCOUNTER → 2024-05-30 | Outpatient (CLI) | payer MEDICARE ==
[2024-05-30 13:45] LABS: BASO % 0.6 % (0.0-1.0); EOS # 0.2 10^3/uL (0.0-0.5); EOS % 2.6 % (0.0-3.0); HEMATOCRIT 32.9 % (36.0-47.0); HEMOGLOBIN 10.6 g/dl (12.0-15.5); LYMPH # 1.3 10^3/uL (1.5-5.0); LYMPH % 19.4 % (24.0-44.0); MEAN CORPUSCULAR HEMOGLOBIN 28.5 pg (27.0-33.0); MEAN CORPUSCULAR HGB CONC 32.2 g/dl (32.0-36.5); MEAN CORPUSCULAR VOLUME 88.4 fl (80.0-96.0); MONO # 0.4 10^3/uL (0.0-0.8); MONO % 6.8 % (2.0-8.0); NEUTROPHILS # 4.6 10^3/uL (1.5-8.5); NEUTROPHILS % 70.3 % (36.0-66.0); PLATELET COUNT, AUTOMATED 201 10^3/uL (150-450); RED BLOOD COUNT 3.72 10^6/uL (4.00-5.40); WHITE BLOOD COUNT 6.5 10^3/uL (4.0-10.0)
[2024-05-30 14:07] LABS: HEMATOCRIT 32.4 % (36.0-47.0)
[2024-05-30 14:16] LABS: ALBUMIN 3.7 G/DL (3.2-5.2); BILIRUBIN,TOTAL 0.4 MG/DL (0.3-1.2); CALCIUM LEVEL 9.1 MG/DL (8.3-10.6); CHOLESTEROL RISK RATIO 4.11 (<5); FERRITIN 40.1 NG/ML (7.3-270.7); FREE T4 1.55 NG/DL (0.89-1.76); GLOMERULAR FILTRATION RATE 55.7 (>32); HDL CHOLESTEROL 41.6 MG/DL (>40); LDL CHOLESTEROL 77.4 MG/DL (<100); NON-HDL-C 129.4 MG/DL; POTASSIUM SERUM 4.5 MMOL/L (3.5-5.1); THYROID STIMULATING HORMONE 0.712 uIU/ML (0.55-4.78); TOTAL PROTEIN 6.6 G/DL (5.7-8.2)
== END ==
LOC: M PLALAB 10:08
PROVIDERS: ATTEND Physician Assistant Medical
DX: R05.2 Subacute cough (principal); D64.9 Anemia, unspecified; E03.9 Hypothyroidism, unspecified; E78.2 Mixed hyperlipidemia; D50.9 Iron deficiency anemia, unspecified

== ENCOUNTER → 2024-06-09 | Outpatient (CLI) | payer MEDICARE ==
[2024-06-09 14:25] LABS: BASO # 0.1 10^3/uL (0.0-0.2); EOS # 0.3 10^3/uL (0.0-0.5); EOS % 4.6 % (0.0-3.0); HEMATOCRIT 30.9 % (36.0-47.0); HEMOGLOBIN 10.1 g/dl (12.0-15.5); LYMPH # 1.2 10^3/uL (1.5-5.0); LYMPH % 17.5 % (24.0-44.0); MEAN CORPUSCULAR HEMOGLOBIN 28.8 pg (27.0-33.0); MEAN CORPUSCULAR HGB CONC 32.7 g/dl (32.0-36.5); MONO # 0.5 10^3/uL (0.0-0.8); NEUTROPHILS # 4.9 10^3/uL (1.5-8.5); NEUTROPHILS % 69.3 % (36.0-66.0); PLATELET COUNT, AUTOMATED 229 10^3/uL (150-450); RED BLOOD COUNT 3.51 10^6/uL (4.00-5.40)
[2024-06-09 14:33] LABS: FERRITIN 31.5 NG/ML (7.3-270.7)
== END ==
LOC: M PLALAB 10:44
PROVIDERS: ATTEND Physician Assistant Medical
DX: D50.9 Iron deficiency anemia, unspecified (principal)

== ENCOUNTER → 2024-06-16 | Outpatient (CLI) | payer MEDICARE | LOC: M WHC 10:18 | PROVIDERS: ATTEND Physician Assistant Medical | DX: Z12.31 Encounter for screening mammogram for malignant neoplasm of breast (principal) ==

== ENCOUNTER 2024-07-14 11:16 | Inpatient (IN) | payer MEDICARE ==
[2024-07-14] VITALS (9 sets, daily range): BP systolic 90–123; BP diastolic 56–60; TEMP 97.4–98.1; O2SAT 92–98
[~2024-07-14] VITALS: Ht 160 cm; Wt 57.1 kg
[2024-07-14] MEDS ORDERED: CLOP75TA2 PO (11:38)
[2024-07-14] MEDS ORDERED: HYDR-161 PO (11:38)
[2024-07-14] MEDS ORDERED: ROSU5TAB49 PO (11:38)
[2024-07-14] MEDS ORDERED: SPIR-10 PO (11:38)
[2024-07-14] MEDS ORDERED: OMEP40CA5 PO (11:38)
[2024-07-14] MEDS: methylPREDNISolone 125MG 2ML VIAL IV ONE (12:08)
[2024-07-14 12:17] LABS: VENOUS BASE EXCESS -4.8 (-2.0-2.0); VENOUS O2 SATURATION 64.3 % (60.0-80.0); VENOUS PARTIAL PRESSURE CO2 35.9 mmHg (38.0-50.0); VENOUS PARTIAL PRESSURE O2 35.2 mmHg (30.0-50.0); VENOUS PH 7.364 UNITS (7.330-7.430); VENOUS TOTAL CO2 21.1 MMOL/L (24.0-28.0)
[2024-07-14] MEDS: ALBUTEROL SULFATE 2.5MG/0.5ML INH CONCENTRATE NEB SOLN INH ONE (12:23)
[2024-07-14] MEDS: IPRATROPIUM 0.5MG/ALBUTEROL 2.5MG INH SOL UD 3ML NEB ONE (12:24)
[2024-07-14 12:31] LABS: BASO % 0.4 % (0.0-1.0); EOS # 0.2 10^3/uL (0.0-0.5); EOS % 2.2 % (0.0-3.0); HEMATOCRIT 25.1 % (36.0-47.0); LYMPH # 0.8 10^3/uL (1.5-5.0); LYMPH % 11.2 % (24.0-44.0); MEAN CORPUSCULAR HEMOGLOBIN 27.3 pg (27.0-33.0); MEAN CORPUSCULAR HGB CONC 31.9 g/dl (32.0-36.5); MEAN CORPUSCULAR VOLUME 85.7 fl (80.0-96.0); MONO # 0.5 10^3/uL (0.0-0.8); MONO % 6.9 % (2.0-8.0); NEUTROPHILS # 5.8 10^3/uL (1.5-8.5); NEUTROPHILS % 78.8 % (36.0-66.0); PLATELET COUNT, AUTOMATED 225 10^3/uL (150-450); RED BLOOD COUNT 2.93 10^6/uL (4.00-5.40); WHITE BLOOD COUNT 7.4 10^3/uL (4.0-10.0)
[2024-07-14] MEDS ORDERED: ISOVUE-370 76% 100ML VIAL As Ordered ONE (12:43)
[2024-07-14 12:54] LABS: BILIRUBIN,DIRECT 0.1 MG/DL (<0.4); BILIRUBIN,TOTAL 0.5 MG/DL (0.3-1.2); CALCIUM LEVEL 8.8 MG/DL (8.3-10.6); CK-MB VALUE MASS 2.6 NG/ML (<3.6); GLOMERULAR FILTRATION RATE 53.9 (>32); MB/CK RELATIVE INDEX 2.95 (< OR =4); POTASSIUM SERUM 4.1 MMOL/L (3.5-5.1); TOTAL PROTEIN 5.8 G/DL (5.7-8.2)
[2024-07-14 12:58] LABS: THYROXINE (T4) 10.9 UG/DL (4.5-10.9)
[2024-07-14 12:59] LABS: THYROID STIMULATING HORMONE 0.05 uIU/ML (0.55-4.78)
[2024-07-14 13:04] LABS: PROCALCITONIN 0.11 ng/ml
[2024-07-14] MEDS: ASPIRIN 81MG CHEW TABLET PO ONE (13:19)
[2024-07-14] MEDS: FUROSEMIDE 20MG/2ML VIAL IV ONE (13:19)
[2024-07-14 13:31] LABS: CK-MB VALUE MASS 1.7 NG/ML (<3.6)
[2024-07-14 13:35] LABS: MB/CK RELATIVE INDEX 2.83 (< OR =4)
[2024-07-14] MEDS ORDERED: TRAM50TA2 PO (14:52)
[2024-07-14] MEDS ORDERED: ACET-683 PO (14:52)
[2024-07-14] MEDS ORDERED: FERR32TA PO (14:52)
[2024-07-14] MEDS ORDERED: LEVO125T4 PO (14:52)
[2024-07-14] MEDS ORDERED: BUDE90AE PO (14:52)
[2024-07-14] MEDS ORDERED: HOME MED LIST COMPLETE! XX SCH (14:55)
[2024-07-14] MEDS ORDERED: MAALOX 30 ML SUSP *UDC PO PRN (16:10)
[2024-07-14] MEDS ORDERED: ACETAMINOPHEN 325 MG TAB PO PRN (16:10)
[2024-07-14] MEDS ORDERED: MOM 30ML SUSPENSION UDC PO PRN (16:10)
[2024-07-14] MEDS: FUROSEMIDE 40MG/4ML VIAL IV SCH (17:00)
[2024-07-14] MEDS ORDERED: ACETAMINOPHEN 500 MG TAB PO PRN (18:40)
[2024-07-14] MEDS ORDERED: CALCIUM CARBONATE 500 MG CHEW U/D PO PRN (18:40)
[2024-07-14] MEDS ORDERED: PILL CUTTER 1 EACH XX PRN (19:05)
[2024-07-14] MEDS: **hydrALAZINE** 10 MG TAB PO SCH (20:45)
[2024-07-14] MEDS: CLOPIDOGREL 75 MG TAB PO SCH (20:46)
[2024-07-14] MEDS ORDERED: BUDESONIDE 90 MCG INH SCH (21:00)
[2024-07-14] MEDS: BUDESONIDE 0.25 MG/2 ML INHALATION SUSPENSION INH SCH (21:06)
[2024-07-15] VITALS (16 sets, daily range): BP systolic 98–120; BP diastolic 56–84; TEMP 97.4–98.4; O2SAT 93–100
[2024-07-15 05:51] LABS: BASO % 0.3 % (0.0-1.0); EOS % 0.2 % (0.0-3.0); HEMATOCRIT 23.1 % (36.0-47.0); HEMOGLOBIN 7.3 g/dl (12.0-15.5); LYMPH # 0.9 10^3/uL (1.5-5.0); MEAN CORPUSCULAR HEMOGLOBIN 26.3 pg (27.0-33.0); MEAN CORPUSCULAR HGB CONC 31.6 g/dl (32.0-36.5); MEAN CORPUSCULAR VOLUME 83.1 fl (80.0-96.0); MONO # 0.4 10^3/uL (0.0-0.8); MONO % 6.5 % (2.0-8.0); NEUTROPHILS % 78.2 % (36.0-66.0); PLATELET COUNT, AUTOMATED 221 10^3/uL (150-450); RED BLOOD COUNT 2.78 10^6/uL (4.00-5.40); WHITE BLOOD COUNT 6.3 10^3/uL (4.0-10.0)
[2024-07-15] MEDS: LEVOTHYROXINE 125MCG TABLET (0.125MG) PO SCH (05:53)
[2024-07-15 06:27] LABS: FERRITIN 57.3 NG/ML (7.3-270.7); FOLATE 22.11 NG/ML (>5.4)
[2024-07-15 06:28] LABS: CALCIUM LEVEL 8.8 MG/DL (8.3-10.6); CREATININE FOR GFR 1.19 MG/DL (0.55-1.30); GLOMERULAR FILTRATION RATE 43.7 (>32); MAGNESIUM LEVEL 1.7 MG/DL (1.8-2.4); PERCENT SATURATION 5.1 % (13.2-45.0); POTASSIUM SERUM 4.2 MMOL/L (3.5-5.1)
[2024-07-15] MEDS ORDERED: ENOXAPARIN 40MG/0.4ML SYRINGE (J1650 PER 10MG) SC SCH (09:00)
[2024-07-15] MEDS: IRBESARTAN 150MG TAB PO SCH (09:00)
[2024-07-15] MEDS ORDERED: FUROSEMIDE 20MG/2ML VIAL IV SCH (09:00)
[2024-07-15] MEDS: ROSUVASTATIN 10 MG TAB PO SCH (09:27)
[2024-07-15] MEDS: PANTOPRAZOLE 40MG TAB PO SCH (09:27)
[2024-07-15] MEDS: SPIRONOLACTONE 25 MG TAB PO SCH (09:27)
[2024-07-15] MEDS: MAG SULF 1GM/100ML (MAG RUN) 1 GM in IV 1 EA IV ONE (09:28)
[2024-07-15] MEDS: VITAMIN D 1,000 INTERNATIONAL UNITS TABLET PO SCH (09:28)
[2024-07-15] MEDS ORDERED: IRON SUCROSE 100MG/5ML VIAL IV SCH (10:30)
[2024-07-15 10:55] LABS: HEMATOCRIT 25.1 % (36.0-47.0)
[2024-07-15] MEDS: IRON SUCROSE 200MG IVP IV SCH (13:52)
[2024-07-15 15:40] LABS: HEMATOCRIT 24.4 % (36.0-47.0); HEMOGLOBIN 7.9 g/dl (12.0-15.5)
[2024-07-15 20:54] LABS: HEMATOCRIT 25.6 % (36.0-47.0); HEMOGLOBIN 8.2 g/dl (12.0-15.5)
[2024-07-15] MEDS: traMADol 50 MG TAB PO PRN (23:06)
[2024-07-16] VITALS (13 sets, daily range): BP systolic 94–132; BP diastolic 54–73; TEMP 97.9–98.6; O2SAT 90–100
[2024-07-16 05:42] LABS: BASO # 0.1 10^3/uL (0.0-0.2); BASO % 0.5 % (0.0-1.0); EOS # 0.6 10^3/uL (0.0-0.5); EOS % 4.4 % (0.0-3.0); HEMATOCRIT 26.2 % (36.0-47.0); HEMOGLOBIN 8.3 g/dl (12.0-15.5); LYMPH % 13.4 % (24.0-44.0); MEAN CORPUSCULAR HEMOGLOBIN 26.3 pg (27.0-33.0); MEAN CORPUSCULAR HGB CONC 31.7 g/dl (32.0-36.5); MEAN CORPUSCULAR VOLUME 83.2 fl (80.0-96.0); MONO # 0.9 10^3/uL (0.0-0.8); MONO % 6.3 % (2.0-8.0); NEUTROPHILS % 74.5 % (36.0-66.0); PLATELET COUNT, AUTOMATED 344 10^3/uL (150-450); RED BLOOD COUNT 3.15 10^6/uL (4.00-5.40); WHITE BLOOD COUNT 14.7 10^3/uL (4.0-10.0)
[2024-07-16 06:12] LABS: CREATININE FOR GFR 1.21 MG/DL (0.55-1.30); GLOMERULAR FILTRATION RATE 42.8 (>32); MAGNESIUM LEVEL 1.9 MG/DL (1.8-2.4); POTASSIUM SERUM 4.4 MMOL/L (3.5-5.1)
[2024-07-16 07:59] LABS: PROCALCITONIN 0.15 ng/ml
[2024-07-16 08:55] LABS: HDL CHOLESTEROL 41.2 MG/DL (>40); LDL CHOLESTEROL 50.6 MG/DL (<100); NON-HDL-C 82.8 MG/DL
[2024-07-16] MEDS: ASPIRIN 300 MG SUPP PR ONE (08:55)
[2024-07-16 09:02] LABS: INR 1.08; PARTIAL THROMBOPLASTIN TIME 24.9 SECONDS (24.8-34.2); PROTHROMBIN TIME 14.3 SECONDS (12.5-14.5)
[2024-07-16] MEDS: ONDANSETRON 4MG 2ML VIAL IV PRN (09:14)
[2024-07-16] MEDS: SODIUM CHLORIDE 0.9% 1000 ML IV ONE (09:35)
[2024-07-16] MEDS: TENECTEPLASE 50 MG/10 ML VIAL IVP ONE (09:58)
[2024-07-16] MEDS: SODIUM CHLORIDE 0.9% INJ 10 ML SYR IV ONE ×2 (09:59)
[2024-07-16 10:44] LABS: HEMOGLOBIN A1c 5.3 % (4.0-6.0)
[2024-07-17 12:32] LABS: RNP ANTIBODY <1.0 NEG AI (<1.0 NEG); SM ANTIBODY <1.0 NEG AI (<1.0 NEG)
[2024-07-18 11:12] LABS: ANA PATTERN Nuclear, Homogeneous (NEGATIVE); ANA SCREEN, IFA POSITIVE (NEGATIVE); ANA TITER 1:40 titer (<1:40)
[2024-07-21 13:22] LABS: ANCA SCREEN Negative (Negative)
== END 2024-07-16 11:52 | disposition short-term general hospital (02) | DRG 291 ==
LOC: EDBD 11:16 → M ED 11:16 → M ED INP 15:13 → M PCU 16:54 → M ICU 07-16 09:44
PROVIDERS: ADMIT Student in an Organized Health Care Education/Training Program; ATTEND Internal Medicine
PROC: B246ZZZ Ultrasonography of Right and Left Heart (ICD-10-PCS; principal; 2024-07-15)
DX: I11.0 Hypertensive heart disease with heart failure (principal); I50.21 Acute systolic (congestive) heart failure; I63.511 Cerebral infarction due to unspecified occlusion or stenosis of right middle cerebral artery; E87.20 Acidosis, unspecified; J84.10 Pulmonary fibrosis, unspecified; E03.9 Hypothyroidism, unspecified; J45.909 Unspecified asthma, uncomplicated; E55.9 Vitamin D deficiency, unspecified; E78.5 Hyperlipidemia, unspecified; I27.20 Pulmonary hypertension, unspecified; E78.1 Pure hyperglyceridemia; I70.213 Atherosclerosis of native arteries of extremities with intermittent claudication, bilateral legs; L40.9 Psoriasis, unspecified; R59.0 Localized enlarged lymph nodes; R33.9 Retention of urine, unspecified; M85.80 Other specified disorders of bone density and structure, unspecified site; D50.9 Iron deficiency anemia, unspecified; I35.0 Nonrheumatic aortic (valve) stenosis; K21.9 Gastro-esophageal reflux disease without esophagitis; Z66 Do not resuscitate; Z86.73 Personal history of transient ischemic attack (TIA), and cerebral infarction without residual deficits; Z85.828 Personal history of other malignant neoplasm of skin; Z98.41 Cataract extraction status, right eye; Z98.42 Cataract extraction status, left eye; Z90.49 Acquired absence of other specified parts of digestive tract; Z87.891 Personal history of nicotine dependence; Z79.02 Long term (current) use of antithrombotics/antiplatelets; Z79.890 Hormone replacement therapy; Z79.899 Other long term (current) drug therapy; Z88.5 Allergy status to narcotic agent; Z77.22 Contact with and (suspected) exposure to environmental tobacco smoke (acute) (chronic)